=== PATIENT | female | born 1940 | race Caucasian/White ===

== ENCOUNTER 2017-02-03 09:49 | Inpatient (IN) | payer OTHER, MEDICARE ==
[2017-02-03] VITALS (8 sets, daily range): BP systolic 100–155; BP diastolic 58–70; PULSE 51–64; RESP 16–20; TEMP 96.7–97.7; O2SAT 95–98
[~2017-02-03] VITALS: Ht 165.1 cm; Wt 74.5 kg
[~2017-02-03 09:49] MED LIST: AMLO2.5T PO; ASPI325T PO; HYDR-2768 PO; LEVO.125 PO; MACR100C PO; POTA20IN3 PO; PRAV20 PO; PRIL20CA PO; TOPR200T PO
[2017-02-03] MEDS ORDERED: POTA-163 PO (10:23)
[2017-02-03] MEDS ORDERED: ATOR20TA15 PO (10:23)
[2017-02-03] MEDS ORDERED: HYDR50TA3 PO (10:23)
[2017-02-03] MEDS ORDERED: CIPR500T2 PO (10:23)
[2017-02-03] MEDS ORDERED: LEVO137T2 PO (10:23)
[2017-02-03] MEDS ORDERED: METO100T PO (10:23)
[2017-02-03] MEDS ORDERED: AMLO5TAB2 PO (10:23)
[2017-02-03] MEDS ORDERED: SODIUM CHLOR 0.9% 1000 ML INJ 1,000 ML IV ONE (10:45)
[2017-02-03 11:06] LABS: BACTERIA, URINE MOD /hpf; BLOOD, URINE TRACE (NEG); COMMENT (UR) CATH-CULTURE IND; CULTURE IF INDICATED CATH CULTURE IND; GLUCOSE,URINE NEG (NEG); KETONE, URINE NEG (NEG); NITRITE,URINE POS (NEG); SQUAMOUS EPITHELIAL CELL URINE <1 /hpf (0-5); URINE COLOR LIGHT-YELLOW (YELLW/STRAW)
[2017-02-03 11:21] LABS: AUTOMATED NEUTROPHIL # 12.2 TH/MM3 (1.8-7.7); BASOPHIL # 0.1 TH/MM3 (0-0.2); BASOPHIL % 0.4 % (0.0-2.0); EOSINOPHIL # 0.2 TH/MM3 (0-0.4); EOSINOPHIL % 1.1 % (0.0-4.0); HEMATOCRIT 44.6 % (35.0-46.0); HEMO FLAGS DIFF FINAL; LYMPH % 10.3 % (9.0-44.0); LYMPHOCYTE # 1.5 TH/MM3 (1.0-4.8); MEAN CELL VOLUME 81.1 FL (80.0-100.0); MEAN CORPUSCULAR HEMOGLOBIN 28.7 PG (27.0-34.0); MEAN CORPUSCULAR HGB CONC 35.4 % (32.0-36.0); MONO % 5.5 % (0.0-8.0); NEUT % 82.7 % (16.0-70.0); PLATELET COUNT 246 TH/MM3 (150-450); RED CELL DISTRIBUTION WIDTH 14.4 % (11.6-17.2); WHITE BLOOD COUNT 14.8 TH/MM3 (4.0-11.0)
[2017-02-03 11:25] LABS: ALKALINE PHOSPHATASE 114 U/L (45-117); ALT (GPT) 35 U/L (10-53); ANION GAP 12 MEQ/L (5-15); AST (GOT) 30 U/L (15-37); BICARBONATE 27.1 MEQ/L (21.0-32.0); BLOOD UREA NITROGEN 6 MG/DL (7-18); CHLORIDE 77 MEQ/L (98-107); GLOMERULAR FILTRATION RATE 80 ML/MIN (>89); TOTAL BILIRUBIN ADULT 1.2 MG/DL (0.2-1.0)
[2017-02-03 11:29] LABS: POTASSIUM 2.6 MEQ/L (3.5-5.1); SODIUM (NA) 116 MEQ/L (136-145)
[2017-02-03] MEDS ORDERED: SODIUM CHLORID 0.9% 500 ML INJ 500 ML IV ONE (11:45)
[2017-02-03] MEDS ORDERED: CIPROFLOXACIN 400 MG PREMIX 200 ML IV ONE (11:45)
[2017-02-03] MEDS ORDERED: cefTRIAXone INJ 1,000 MG in SODIUM CHLORIDE 0.9% INJ 100 ML IV ONE (11:45)
[2017-02-03 12:28] LABS: BICARBONATE 26.4 MEQ/L (21.0-32.0)
[2017-02-03 12:32] LABS: POTASSIUM 2.7 MEQ/L (3.5-5.1)
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
[2017-02-03] MEDS: POTASSIUM CHLOR 20 MEQ PREMIX 100 ML IV SCH ×2 (13:02→15:50)
[2017-02-03] MEDS: SODIUM CHLOR 0.9% 1000 ML INJ 1,000 ML IV SCH ×2 (13:02→19:28)
[2017-02-03] MEDS ORDERED: NALOXONE HCL 0.4 MG/ML AMP IV PUSH PRN (13:45)
[2017-02-03] MEDS ORDERED: SODIUM CHLORIDE 0.9% FLUSH 10 ML FLUSH IV FLUSH PRN (13:45)
[2017-02-03] MEDS ORDERED: BISACODYL 10 MG SUPP RECTAL PRN (13:45)
[2017-02-03] MEDS ORDERED: LACTULOSE SYRUP 20 GM/30 ML CUP PO PRN (13:45)
[2017-02-03] MEDS ORDERED: MAGNESIUM HYDROXIDE SUSP 30 ML CUP PO PRN (13:45)
[2017-02-03] MEDS ORDERED: SENNOSIDES 8.6 MG TAB PO PRN (13:45)
[2017-02-03] MEDS ORDERED: ONDANSETRON HCL 4 MG/2 ML VIAL IVP PRN (13:45)
[2017-02-03] MEDS ORDERED: ACETAMINOPHEN 325 MG TAB PO PRN (13:45)
[2017-02-03] MEDS: HEPARIN SODIUM - SQ 10,000 UNITS/ML VIAL SQ SCH (15:00)
[2017-02-03] MEDS: amLODIPine BESYLATE 5 MG TAB PO SCH (15:50)
[2017-02-03] MEDS: ATORVASTATIN 20 MG TAB PO SCH (20:37)
[2017-02-03] MEDS: SODIUM CHLORIDE 0.9% FLUSH 10 ML FLUSH IV FLUSH SCH (20:38)
[2017-02-03] MEDS ORDERED: POTASSIUM CHLORIDE 20 MEQ CONTROLLED RELEASE TAB PO ONE (23:00)
--- NOTE | 2017-02-03 23:24 | HHI.HP ---
HPI Service [facility] Primary Care Physician Oswaldo Talbot M.D. Admission Diagnosis hyponatremia Diagnoses: Travel History International Travel<30 Days: No Contact w/Intl Traveler <30 Da: No Traveled to Known Affected Are: No History of Present Illness hx from patient, ER physician communication, and review of medical records. Patient reported that she came to the hospital because she has been extremely weak. She reports she was very nauseous but did not vomit. She has had diarrhea off and on, maybe once a week for about 2 months. Denies any blood in her stool or in her urine. She reports she was also having UTIs for a while on antibiotics. On , she was at her doctor's office and was prescribed Cipro. She's been on it since Wednesday. Her diarrhea is more foul-smelling than her normal stool. No fever. But felt cold all the time. No cough. She is on hydrochlorothiazide at home. Denies any chest pain/dizziness/syncopal episodes. Patient reports similar episodes with severe weakness,. She was rushed to potential blood clots overnight Review of Systems Except as stated in HPI: all other systems reviewed are Neg Past Family Social History Past Medical History htn hypothyroidism hyperlipidemia Past Surgical History no surgeries Allergies: Coded Allergies: penicillin G (Unverified Allergy, Mild, 02/03/17) Family History sister- has every medical issues dad- lives till 87yo. fell in hospital and hip fx mother- schizophrenia Social History used to smoke, quit 40yrs ago denies etoh or drug abuse Physical Exam Vital Signs Vital Signs Date Time Temp Pulse Resp B/P (MAP) Pulse Ox O2 Delivery O2 Flow Rate FiO2 02/03/17 20:00 96.7 53 18 100/58 (72) 95 02/03/17 19:00 51 02/03/17 15:00 97.6 57 20 131/63 (85) 96 02/03/17 14:31 02/03/17 13:43 60 16 134/63 (86) 98 Room Air 02/03/17 12:33 64 16 155/70 (98) 98 Room Air 02/03/17 10:18 61 18 151/66 (94) 98 Room Air 02/03/17 09:59 97.7 61 16 146/66 (92) 97 Physical Exam GENERAL: This is a well-nourished, well-developed patient, in no apparent distress. SKIN: No rashes, ecchymoses or lesions. Cool and dry. HEAD: Atraumatic. Normocephalic. No temporal or scalp tenderness. EYES: No scleral icterus. No injection or drainage. ENT: Nose without bleeding, purulent drainage or septal hematoma.. Airway patent. NECK: Trachea midline. No JVD CARDIOVASCULAR: Regular rate and rhythm without murmurs, gallops, or rubs. RESPIRATORY: Clear to auscultation. Breath sounds equal bilaterally. No wheezes , rales, or rhonchi. GASTROINTESTINAL: Abdomen soft, non-tender, nondistended. No guarding. MUSCULOSKELETAL: Extremities without clubbing, cyanosis, or edema.. No calf tenderness. NEUROLOGICAL: Awake and alert. Motor and sensory grossly within normal limits. Normal speech. Laboratory Laboratory Tests Test 02/03/17 10:50 02/03/17 11:48 White Blood Count 14.8 Red Blood Count 5.50 Hemoglobin 15.8 Hematocrit 44.6 Mean Corpuscular Volume 81.1 Mean Corpuscular Hemoglobin 28.7 Mean Corpuscular Hemoglobin Concent 35.4 Red Cell Distribution Width 14.4 Platelet Count 246 Mean Platelet Volume 7.4 Neutrophils (%) (Auto) 82.7 Lymphocytes (%) (Auto) 10.3 Monocytes (%) (Auto) 5.5 Eosinophils (%) (Auto) 1.1 Basophils (%) (Auto) 0.4 Neutrophils # (Auto) 12.2 Lymphocytes # (Auto) 1.5 Monocytes # (Auto) 0.8 Eosinophils # (Auto) 0.2 Basophils # (Auto) 0.1 CBC Comment DIFF FINAL Differential Comment Urine Color LIGHT-YELLOW Urine Turbidity HAZY Urine pH 6.0 Urine Specific [place] 1.007 Urine Protein NEG Urine Glucose (UA) NEG Urine Ketones NEG Urine Occult Blood TRACE Urine Nitrite POS Urine Bilirubin NEG Urine Urobilinogen LESS THAN 2.0 Urine Leukocyte Esterase LARGE Urine RBC 2 Urine WBC 18 Urine Squamous Epithelial Cells <1 Urine Bacteria MOD Microscopic Urinalysis Comment CATH-CULTURE IND Blood Urea Nitrogen 6 6 Creatinine 0.71 0.53 Random Glucose 113 102 Total Protein 7.6 Albumin 3.8 Calcium Level 8.6 8.5 Alkaline Phosphatase 114 Aspartate Amino Transf (AST/SGOT) 30 Alanine Aminotransferase (ALT/SGPT) 35 Total Bilirubin 1.2 Sodium Level 116 118 Potassium Level 2.6 2.7 Chloride Level 77 81 Carbon Dioxide Level 27.1 26.4 Anion Gap 12 11 Estimat Glomerular Filtration Rate 80 112 Troponin I LESS THAN 0.02 Lactic Acid Level 2.4 Date/Time Source Procedure Growth Status 02/03/17 10:50 Urine Catheterized Urine Urine Culture Pending Received Result Diagram: 02/03/17 1050 02/03/17 1148 Caprini VTE Risk Assessment Caprini VTE Risk Assessment: Mod/High Risk (score >= 2) Caprini Risk Assessment Model Point Value = 1 Point Value = 2 Point Value = 3 Point Value = 5 Age 41-60 Minor surgery BMI > 25 kg/m2 Swollen legs Varicose veins or History of unexplained or recurrent spontaneous Oral contraceptives or hormone replacement Sepsis (< 1 month) Serious lung disease, including pneumonia (< 1 month) Abnormal pulmonary function Acute myocardial infarction Congestive heart failure (< 1 month) History of inflammatory bowel disease Medical patient at bed rest Age 61-74 Arthroscopic surgery Major open surgery (> 45 min) Laparoscopic surgery (> 45 min) Malignancy Confined to bed (> 72 hours) Immobilizing plaster cast Central venous access Age >= 75 History of VTE Family history of VTE Factor V Leiden Prothrombin [id number] Lupus anticoagulant Anticardiolipin antibodies Elevated serum homocysteine Heparin-induced thrombocytopenia Other congenital or acquired thrombophilia Stroke (< 1 month) Elective arthroplasty Hip, pelvis, or leg fracture Acute spinal cord injury (< 1 month) Prophylaxis Regimen Total Risk Factor Score Risk Level Prophylaxis Regimen 0-1 Low Early ambulation 2 Moderate Order ONE of the following: *Sequential Compression Device (SCD) *Heparin 5000 units SQ BID 3-4 Higher Order ONE of the following medications: *Heparin 5000 units SQ TID *Enoxaparin/Lovenox 40 mg SQ daily (WT < 150 kg, CrCl > 30 mL/min) *Enoxaparin/Lovenox 30 mg SQ daily (WT < 150 kg, CrCl > 10-29 mL/min) *Enoxaparin/Lovenox 30 mg SQ BID (WT < 150 kg, CrCl > 30 mL/min) AND/OR *Sequential Compression Device (SCD) 5 or more Highest Order ONE of the following medications: *Heparin 5000 units SQ TID (Preferred with Epidurals) *Enoxaparin/Lovenox 40 mg SQ daily (WT < 150 kg, CrCl > 30 mL/min) *Enoxaparin/Lovenox 30 mg SQ daily (WT < 150 kg, CrCl > 10-29 mL/min) *Enoxaparin/Lovenox 30 mg SQ BID (WT < 150 kg, CrCl > 30 mL/min) AND *Sequential Compression Device (SCD) Assessment and Plan Assessment and Plan Impression: uti hyponatremia hyokalemia sepsis by criteria diarhrea- r/o cdiff Plan: pt received rocephin in ER will follow culture results and adjust antibiotics IV hydration with NS follow Na levels Kcl replaced - 40mq po and another 40meq iv will follow levels in am pt has recent antibiotic use, dairrhea- will need to r/o cdiff till then, hold antibiotics- will follow urine cx before treating more with antibiotics check mag level and replace as needed resume home meds per med rec dvt prophylaxis with scd Discussed Condition With patient, ER MD, nursing staff Physician Certification 2 Midnight Certification Type: Admission for Inpatient Services Order for Inpatient Services The services are ordered in accordance with Medicare regulations or non- Medicare payer requirements, as applicable. In the case of services not specified as inpatient-only, they are appropriately provided as inpatient services in accordance with the 2-midnight benchmark. Estimated LOS (days): 2 days is the estimated time the patient will need to remain in the hospital, assuming treatment plan goals are met and no additional complications. Post-Hospital Plan: Not yet determined Sandra Lemus MD Feb 03, 2017 23:24
[2017-02-03] MEDS: POTASSIUM CHLOR 10 MEQ PREMIX 100 ML IV SCH (23:40)
[2017-02-04] VITALS (7 sets, daily range): BP systolic 126–143; BP diastolic 63–69; PULSE 53–68; RESP 16–20; TEMP 95.7–97.5; O2SAT 95–99
[2017-02-04 01:26] LABS: BICARBONATE 28.4 MEQ/L (21.0-32.0); MAGNESIUM 1.7 MG/DL (1.5-2.5)
[2017-02-04 01:27] LABS: POTASSIUM 2.9 MEQ/L (3.5-5.1)
[2017-02-04] MEDS: HEPARIN SODIUM - SQ 10,000 UNITS/ML VIAL SQ SCH ×2 (02:10→15:00)
[2017-02-04] MEDS: POTASSIUM CHLOR 10 MEQ PREMIX 100 ML IV SCH ×5 (02:11→08:25)
[2017-02-04] MEDS: LEVOTHYROXINE SODIUM 112 MCG TAB PO SCH (06:10)
[2017-02-04] MEDS: LEVOTHYROXINE SODIUM 25 MCG TAB PO SCH (06:10)
[2017-02-04] MEDS: SODIUM CHLOR 0.9% 1000 ML INJ 1,000 ML IV SCH (06:12)
[2017-02-04 06:27] LABS: AUTOMATED NEUTROPHIL # 6.5 TH/MM3 (1.8-7.7); BASOPHIL # 0.1 TH/MM3 (0-0.2); BASOPHIL % 0.8 % (0.0-2.0); EOSINOPHIL # 0.4 TH/MM3 (0-0.4); EOSINOPHIL % 4.5 % (0.0-4.0); HEMATOCRIT 39.4 % (35.0-46.0); HEMO FLAGS DIFF FINAL; LYMPH % 18.5 % (9.0-44.0); LYMPHOCYTE # 1.8 TH/MM3 (1.0-4.8); MEAN CELL VOLUME 82.9 FL (80.0-100.0); MEAN CORPUSCULAR HEMOGLOBIN 28.5 PG (27.0-34.0); MEAN CORPUSCULAR HGB CONC 34.4 % (32.0-36.0); MONO % 8.2 % (0.0-8.0); PLATELET COUNT 213 TH/MM3 (150-450); RED BLOOD COUNT 4.75 MIL/MM3 (4.00-5.30); RED CELL DISTRIBUTION WIDTH 14.6 % (11.6-17.2); WHITE BLOOD COUNT 9.6 TH/MM3 (4.0-11.0)
[2017-02-04 06:57] LABS: BICARBONATE 25.9 MEQ/L (21.0-32.0); MAGNESIUM 1.9 MG/DL (1.5-2.5); POTASSIUM 4.1 MEQ/L (3.5-5.1)
[2017-02-04] MEDS: POTASSIUM CHLORIDE 20 MEQ CONTROLLED RELEASE TAB PO SCH (08:25)
[2017-02-04] MEDS: SODIUM CHLORIDE 0.9% FLUSH 10 ML FLUSH IV FLUSH SCH ×2 (08:25→21:09)
[2017-02-04] MEDS: amLODIPine BESYLATE 5 MG TAB PO SCH ×2 (08:25→21:00)
[2017-02-04] MEDS: METOPROLOL TARTRATE 100 MG TAB PO SCH (08:27)
[2017-02-04] MEDS ORDERED: HYDROCHLOROTHIAZIDE 50 MG TAB PO SCH (09:00)
--- NOTE | 2017-02-04 17:25 | HHI.PR ---
Subjective Remarks pt says she feels good, no dysuria, no diarrhea today, no BM at all today. Pt is very hungry. D/w nursing today, patient wanting to go home and wanting to eat. Says that her UTIs only cause her to itch, denies any vaginal itching today. Objective Vital Signs Date Time Temp Pulse Resp B/P (MAP) Pulse Ox O2 Delivery O2 Flow Rate FiO2 02/04/17 11:50 97.5 55 20 141/69 (93) 97 02/04/17 07:50 96.1 68 20 138/65 (89) 97 02/04/17 04:00 96.8 57 17 126/69 (88) 98 02/04/17 00:00 96.6 53 17 143/65 (91) 97 02/03/17 21:00 52 02/03/17 20:00 96.7 53 18 100/58 (72) 95 02/03/17 19:00 51 I/O 02/03/17 02/03/17 02/03/17 02/04/17 02/04/17 02/04/17 07:00 15:00 23:00 07:00 15:00 23:00 Intake Total 2070 ml 2342 ml Balance 2070 ml 2342 ml Intake IV Total 2070 ml 2342 ml # Voids 2 Result Diagram: 02/04/17 0604 02/04/17 0604 Objective Remarks NAD ambulating well abd: soft, NT, ND A/P Assessment and Plan hyponatremia - stopping aggressive IVFs since the pt does not appear clinically septic anymore at all and there is a concern for rapid correction. Did correct > 12 units in 24 hours, unsure if prior level of 116 is accurate or not. Will trend labs, pt warned about signs and symptoms of CPM in case they emerge. severe hypokalemia - improved since it has been replaced aggressively so far, will trend tomorrow to ensure stabilization on home po regimen diarrhea - none today, will cancel c.diff marco- resolved uti - clinically improved if not resolved, yet UA while on Cipro is growing GNRs , will await for culture tomorrow sepsis - Resolved, despite ? source, possibly uti. Diarrhea unlikely since this is very scant now PO diet as tolerated. IVFs discontinued. Arnulfo Cavanaugh MD Feb 04, 2017 17:25
[2017-02-04] MEDS ORDERED: TEMAZEPAM 15 MG CAP PO PRN (20:00)
--- NOTE | 2017-02-04 20:41 | EKG ---
Date Performed: 02/03/2017 Time Performed: 10:56:47 PTAGE: 76 years EKG: SINUS BRADYCARDIA WITH FIRST DEGREE AV BLOCK RIGHT BUNDLE BRANCH BLOCK LEFT AXIS DEVIATION Compared to prior tracing no significant change ABNORMAL ECG PREVIOUS TRACING : 02/03/2017 10.55 DOCTOR: Lester Mata Interpretating Date/Time 02/08/2017 07:18:41
[2017-02-04] MEDS: CIPROFLOXACIN 500 MG TAB PO SCH (21:01)
[2017-02-04] MEDS: ATORVASTATIN 20 MG TAB PO SCH (21:02)
[2017-02-05] VITALS (24 sets, daily range): BP systolic 92–154; BP diastolic 51–86; PULSE 46–78; RESP 16–22; TEMP 96.4–98.5; O2SAT 93–100
[2017-02-05] MEDS: HEPARIN SODIUM - SQ 10,000 UNITS/ML VIAL SQ SCH ×2 (03:00→14:28)
[2017-02-05] MEDS: LEVOTHYROXINE SODIUM 112 MCG TAB PO SCH (06:23)
[2017-02-05] MEDS: LEVOTHYROXINE SODIUM 25 MCG TAB PO SCH (06:23)
[2017-02-05 07:36] LABS: BICARBONATE 24.7 MEQ/L (21.0-32.0); MAGNESIUM 1.9 MG/DL (1.5-2.5); POTASSIUM 3.5 MEQ/L (3.5-5.1)
[2017-02-05] MEDS: POTASSIUM CHLORIDE 20 MEQ CONTROLLED RELEASE TAB PO SCH (07:44)
[2017-02-05] MEDS: CIPROFLOXACIN 500 MG TAB PO SCH (07:45)
[2017-02-05] MEDS: SODIUM CHLORIDE 0.9% FLUSH 10 ML FLUSH IV FLUSH SCH ×2 (07:45→20:38)
[2017-02-05] MEDS: METOPROLOL TARTRATE 100 MG TAB PO SCH (07:45)
[2017-02-05] MEDS: amLODIPine BESYLATE 5 MG TAB PO SCH ×2 (07:49→20:38)
--- NOTE | 2017-02-05 13:47 | EKG ---
Date Performed: 02/05/2017 Time Performed: 09:07:40 PTAGE: 76 years EKG: SINUS BRADYCARDIA WITH SINUS ARRHYTHMIA WITH FIRST DEGREE AV BLOCK RIGHT BUNDLE BRANCH BLOC K LEFT ANTERIOR FASCICULAR BLOCK ABNORMAL ECG PREVIOUS TRACING : 02/03/2017 10.56 Compared to prior tracing no significant change DOCTOR: Uday Ortiz Interpretating Date/Time 02/05/2017 13:46:44
--- NOTE | 2017-02-05 14:41 | HHI.PR ---
Subjective Remarks was paged for amira; rn reported receiving notice from ticker that pt's pulse had decreased to the 20s for about 30 seconds . she was lightheaded but awake. BP was normal, sats stable on RA, no fever. short ~ 5 sec pauses were noted on telemetry strips. I myself examine the patient and she was awake alert. Her pulse had rebounded to the 50s without any acute intervention in her remaining vitals remained stable. EKG was repeated, actually showed a QTC in the 480s which was slightly less than EKG upon admission with QTCs and low 500s. Discussed case and consulted cardiology, will stop beta penelope. Objective Vital Signs Date Time Temp Pulse Resp B/P (MAP) Pulse Ox O2 Delivery O2 Flow Rate FiO2 02/05/17 14:00 50 02/05/17 12:00 53 02/05/17 12:00 98.3 53 21 132/62 (85) 100 02/05/17 11:03 100 Nasal Cannula 1.50 02/05/17 10:41 97.4 55 18 153/67 (95) 100 02/05/17 10:41 52 02/05/17 10:05 50 127/64 (85) 02/05/17 09:50 49 139/60 (86) 94 02/05/17 09:45 52 143/86 (105) 02/05/17 09:42 46 02/05/17 09:35 53 146/68 (94) 02/05/17 09:30 48 142/66 (91) 02/05/17 09:25 47 129/69 (89) 93 02/05/17 09:15 55 18 143/66 (91) 97 02/05/17 09:10 51 154/68 (96) 97 02/05/17 09:10 53 02/05/17 09:05 96.4 54 18 139/69 (92) 97 02/05/17 08:00 96.5 68 135/79 (97) 94 02/05/17 04:00 97.6 78 22 92/51 (65) 98 02/05/17 00:00 97.2 68 22 102/59 (73) 98 02/04/17 21:00 57 02/04/17 20:06 95.7 68 16 134/65 (88) 99 9/14/17 15:50 97.4 62 20 132/63 (86) 95 I/O 02/04/17 02/04/17 02/04/17 02/05/17 02/05/17 02/05/17 07:00 15:00 23:00 07:00 15:00 23:00 Intake Total 2342 ml 1061 ml 720 ml 1760 ml Balance 2342 ml 1061 ml 720 ml 1760 ml Intake Oral 1061 ml 720 ml 560 ml IV Total 2342 ml 1200 ml # Voids 2 4 4 2 # Bowel Movements 0 Result Diagram: 02/04/17 0604 02/05/17 0446 Objective Remarks NAD HR: rrr, no murmurs unlabored breathing, no cyanosis awake, alert, oriented x 3 A/P Assessment and Plan Transient symptomatic severe bradycardia - we'll stop beta penelope, cardiology now following, plan for EP study on Wednesday, will keep patient inpatient, transferring to intermediate care. stopping cipro out of concern for qt prolongation uti - will stop cipro, found to be ESBL positive +, consulting ID for IV abx setup. Pt will stay over weekend. hyponatremia - near resolution, monitor severe hypokalemia - resolved diarrhea - resolved PO diet as tolerated. Arnulfo Cavanaugh MD Feb 05, 2017 14:41
--- NOTE | 2017-02-05 17:58 | MB ---
cc: SAMMY MARQUES DO DATE OF CONSULTATION February 05, 2017 REASON FOR CONSULTATION Bradycardia, sinus pauses. HISTORY OF PRESENT ILLNESS Melinda Lizarraga is a pleasant 76-year-old female who originally came to the hospital because she was extremely weak. She reports that she was nauseous but was not vomiting. She recently was told that she had a UTI and was placed on antibiotics. She has no fevers or chills. While here she was placed on her normal medications including metoprolol tartrate 200 milligrams which she takes for blood pressure. After taking it this morning she was noted to have 2.5 to 3.5 second pauses on telemetry. During this she was noted to be lightheaded. I was called by Dr. Cavanaugh and reviewed the case with him extensively. PAST MEDICAL HISTORY 1. Hypertension. 2. Hypothyroidism. 3. Hyperlipidemia. PAST SURGICAL HISTORY Denies. ALLERGIES PENICILLIN. MEDICATIONS 1. Synthroid 137 micrograms daily. 2. Hydrochlorothiazide 50 milligrams daily. 3. Potassium 20 milliequivalents daily. 4. Norvasc 5 milligrams b.i.d. 5. Metoprolol tartrate 200 milligrams daily. 6. Lipitor 20 milligrams every night. 7. Placed on Cipro 500 milligrams b.i.d. for 7 days due to a UTI. FAMILY HISTORY Denies premature coronary artery disease or sudden cardiac within the family. SOCIAL HISTORY The patient previously smoked but quit 40 years ago. Denies alcohol or drug abuse. REVIEW OF SYSTEMS 14-systems were reviewed including osteopathic, pertinent positives and negatives above, otherwise negative. PHYSICAL EXAMINATION VITAL SIGNS: Temperature 97.4, heart rate 55, blood pressure 153/67, respirations 18, pulse ox 100% on 1 liter. GENERAL: In general, the patient appears well in no acute distress, alert awake and oriented x3. HEENT: Extraocular muscles intact. Mucous membranes moist. NECK: Supple. No JVD at 45 degrees. No carotid bruits heard bilaterally. Carotid upstroke is brisk in nature. HEART: Heart is bradycardic but regular. No noted murmurs or rubs. LUNGS: Clear to auscultation bilaterally. No wheezes, rales or rhonchi. ABDOMEN: Soft, nontender, nondistended. No organomegaly noted. EXTREMITIES: Show no clubbing, cyanosis or edema. Femoral and distal pulses intact bilaterally. NEUROLOGICALLY: No focal deficits. SKIN: Warm, dry and intact. OSTEOPATHIC: No kyphoscoliosis, lordosis or paraspinal tender points LABORATORY FINDINGS Hemoglobin 13.6, hematocrit 39.4, platelets 213. Potassium 3.5, BUN 7, creatinine 0.65. CARDIOLOGY STUDIES Electrocardiogram (February 05, 2017 at 09:07) sinus bradycardia with sinus arrhythmia, first degree AV block, right bundle branch block, left anterior fascicular block. No significant change from February 03, 2017. IMPRESSION 1. Sinus pauses of 2.5-3.5 seconds during which the patient is dizzy and symptomatic. 2. 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 3. History of hypertension. 4. History of hypothyroidism. 5. History of hyperlipidemia. 6. Possible UTI. 7. Hyponatremia and hypokalemia, possibly due to hydrochlorothiazide. RECOMMENDATIONS 1. Melinda Lizarraga was noted to have significant pauses of 2.5-3.5 seconds on telemetry. This may be due to her beta-penelope therapy and this will be held at this time. 2. We will transfer her to [facility] to be watched. At this time she is currently hemodynamically stable and I do not feel that she needs a temporary pacemaker. 3. Overall, she does have a trifascicular block on her EKG and most likely will need at least consideration of an EP study to determine if she needs a permanent pacemaker. This was discussed with Dr. Higgins and for now he will plan on possibly Wednesday. A consult will be placed for Dr. Higgins. 4. Further recommendations will be made based on the hospital course. 5. Will check a TSH, although, overall it appears that this is degeneration of her cardiac electric system. Thank you for allowing me to the Melinda Lizarraga. If there are any questions please do not hesitate to call. Sammy Marques DO VGP/EO /1:39 PM /5:44 PM
[2017-02-05] MEDS: ATORVASTATIN 20 MG TAB PO SCH (20:38)
[2017-02-06] VITALS (12 sets, daily range): BP systolic 115–138; BP diastolic 60–70; PULSE 52–78; RESP 18–22; TEMP 97.8–98.8; O2SAT 96–100
[2017-02-06] MEDS: HEPARIN SODIUM - SQ 10,000 UNITS/ML VIAL SQ SCH (03:00)
[2017-02-06] MEDS: LEVOTHYROXINE SODIUM 112 MCG TAB PO SCH (05:29)
[2017-02-06] MEDS: LEVOTHYROXINE SODIUM 25 MCG TAB PO SCH (05:29)
[2017-02-06] MEDS: POTASSIUM CHLORIDE 20 MEQ CONTROLLED RELEASE TAB PO SCH (08:06)
[2017-02-06] MEDS: SODIUM CHLORIDE 0.9% FLUSH 10 ML FLUSH IV FLUSH SCH ×2 (08:06→21:00)
[2017-02-06] MEDS: amLODIPine BESYLATE 5 MG TAB PO SCH ×2 (08:06→20:13)
--- NOTE | 2017-02-06 10:17 | PD.CARD.PN ---
Subjective Subjective Remarks No events overnight Feels well today, no complaints Telemetry showing last pause at 02/05/17 ~6pm, since mostly sinus/sinus aman Objective Medications Current Medications Medications (Trade) Dose Ordered Sig/Olivia Route Start Time Stop Time Status Last Admin (Norvasc) 5 mg BID PO 02/03/17 15:00 02/06/17 08:06 (Lipitor) 20 mg HS PO 02/03/17 21:00 02/05/17 20:38 (KCl) 20 meq DAILY PO 02/04/17 09:00 02/06/17 08:06 (Synthroid) 112 mcg DAILY@0600 PO 02/04/17 06:00 02/06/17 05:29 (NS Flush) 2 ml UNSCH PRN IV FLUSH 02/03/17 13:45 (NS Flush) 2 ml BID IV FLUSH 02/03/17 21:00 02/06/17 08:06 (Tylenol) 650 mg Q4H PRN PO 02/03/17 13:45 (Zofran Inj) 4 mg Q6H PRN IVP 02/03/17 13:45 (Heparin Inj) 5,000 units Q12H SQ 02/03/17 15:00 (Narcan Inj) 0.4 mg UNSCH PRN IV PUSH 02/03/17 13:45 (Milk Of Magnesia Liq) 30 ml Q12H PRN PO 02/03/17 13:45 (Senokot) 17.2 mg Q12H PRN PO 02/03/17 13:45 (Dulcolax Supp) 10 mg DAILY PRN RECTAL 02/03/17 13:45 (Lactulose Liq) 30 ml DAILY PRN PO 02/03/17 13:45 (Synthroid) 25 mcg DAILY@0600 PO 02/04/17 06:00 02/06/17 05:29 (Restoril) 15 mg HS PRN PO 02/04/17 20:00 02/04/17 21:02 Vital Signs / I&O Vital Signs Date Time Temp Pulse Resp B/P (MAP) Pulse Ox O2 Delivery O2 Flow Rate FiO2 02/06/17 06:00 63 02/06/17 04:00 98.8 59 18 137/63 (87) 97 02/06/17 04:00 59 02/06/17 02:00 52 02/06/17 00:00 98.5 53 20 115/62 (79) 96 02/06/17 00:00 53 02/05/17 22:00 53 02/05/17 20:00 56 02/05/17 20:00 98.5 56 22 138/63 (88) 98 02/05/17 18:00 52 02/05/17 16:00 98.5 53 22 112/55 (74) 97 02/05/17 16:00 53 02/05/17 14:00 50 02/05/17 12:00 53 02/05/17 12:00 98.3 53 21 132/62 (85) 100 02/05/17 11:03 100 Nasal Cannula 1.50 02/05/17 10:41 97.4 55 18 153/67 (95) 100 02/05/17 10:41 52 I/O 02/05/17 02/05/17 02/05/17 02/06/17 02/06/17 02/06/17 07:00 15:00 23:00 07:00 15:00 23:00 Intake Total 720 ml 1760 ml 500 ml 240 ml Balance 720 ml 1760 ml 500 ml 240 ml Intake Oral 720 ml 560 ml 500 ml 240 ml IV Total 1200 ml # Voids 4 2 1 1 Physical Exam GENERAL: NAD, AAOx3 SKIN: Warm and dry. HEAD: Atraumatic. Normocephalic. EYES: Pupils equal and round. No scleral icterus. No injection or drainage. ENT: No nasal bleeding or discharge. Mucous membranes pink and moist. NECK: Trachea midline. No JVD. CARDIOVASCULAR: Regular rate and rhythm. RESPIRATORY: No accessory muscle use. Clear to auscultation. Breath sounds equal bilaterally. GASTROINTESTINAL: Abdomen soft, non-tender, nondistended. Hepatic and splenic margins not palpable. MUSCULOSKELETAL: Extremities without clubbing, cyanosis, or edema. No obvious deformities. NEUROLOGICAL: Awake and alert. No obvious cranial nerve deficits. Motor grossly within normal limits. Five out of 5 muscle strength in the arms and legs. Normal speech. PSYCHIATRIC: Appropriate mood and affect; insight and judgment normal. 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 - Trifascicular block (3) Sinus pause ICD Codes: I45.5 - Other specified heart block (4) Hyponatremia ICD Codes: E87.1 - Hypo-osmolality and hyponatremia Status: Acute (5) Urinary tract infection ICD Codes: N39.0 - Urinary tract infection, site not specified Status: Acute Assessment and Plan 1) Sinus pauses Most likely due to large doses of BB Would watch in the ICU for 24 hours, if no pauses then can be transferred to [facility]IC Con't to hold BB 2) Hypothyroidism TSH high, will need further testing of T4/T3 to further determine if hypothyroid on current Synthroid dose 3) Trifascicular block Even if hypothyroid, still needs EP study to determine if PPM is needed Discussed with Dr. Higgins, will plan on Wednesday possibly 4) HTN Controlled on Norvasc 5) Hyponatremia/hypokalemia Stable/resolved Most likely due to HCTZ Problem Qualifiers (1) Urinary tract infection: Qualified Codes: N30.00 - Acute cystitis without hematuria Sammy Montoya DO Feb 06, 2017 10:17
--- NOTE | 2017-02-06 12:46 | ECHRPT ---
Indication: SINUS PAUSES CONCLUSIONS Normal left ventricular size. Mild concentric left ventricular hypertrophy. Doppler parameters are consistent with impaired left ventricular relaxtion (grade 1 diastolic dysfun ction). The left atrial size is [id number] dilated. The right atrial size is mildly dilated. The interatrial septum not well visualized. Mild thickening of the mitral valve leaflets. Trace mitral valve regurgitation. Moderate mitral annular calcification. The aortic valve is not well visualized. Aortic valve sclerosis is present. Mild aortic valve regurgitation. No aortic valve stenosis. There is mild tricuspid valve regurgitation. There is estimated mild pulmonary hypertension present (range 40-50 mmHg). The pulmonary valve is not well visualized. The inferior vena cava was not well visualized. A prominent epicardial fat pad is present. BP: 137 / 63 HR: 56 Rhythm: Sinus MEASUREMENTS (Male / Female) Normal Values Technical Quality:Fair 2D ECHO LV Diastolic Diameter PLAX 4.8 cm 4.2 - 5.9 / 3.9 - 5.3 cm LV Systolic Diameter PLAX 3.2 cm IVS Diastolic Thickness 1.1 cm 0.6 - 1.0 / 0.6 - 0.9 cm LVPW Diastolic Thickness 1.1 cm 0.6 - 1.0 / 0.6 - 0.9 cm LV Relative Wall Thickness 0.4 LVOT Diameter 1.8 cm Aortic Root Diameter 2.1 cm LA Systolic Diameter LX 4.3 cm 3.0 - 4.0 / 2.7 - 3.8 cm M-MODE AV Cusp Separation MM 1.7 cm DOPPLER AV Peak Velocity 149.0 cm/s AV Peak Gradient 8.9 mmHg AV Mean Gradient 4.0 mmHg AV Velocity Time Integral 28.3 cm LVOT Peak Velocity 119.0 cm/s LVOT Peak Gradient 5.7 mmHg LVOT Velocity Time Integral 25.6 cm LVOT Cardiac Index 1919.0 cm/minm AV Area Cont Eq vti 2.3 cm AV Area Cont Eq pk 2.0 cm Mitral E Point Velocity 79.0 cm/s Mitral A Point Velocity 105.0 cm/s Mitral E to A Ratio 0.8 LV E' Lateral Velocity 7.8 cm/s Mitral E to LV E' Lateral Ratio 10.1 LV E' Septal Velocity 5.6 cm/s Mitral E to LV E' Septal Ratio 14.2 TR Peak Velocity 285.0 cm/s TR Peak Gradient 32.5 mmHg PV Peak Velocity 98.7 cm/s PV Peak Gradient 3.9 mmHg FINDINGS LEFT VENTRICLE Normal left ventricular size. Mild concentric left ventricular hypertrophy. The left ventricular systolic function is normal with an estimated ejection fraction in the range of 60-65%. Doppler parameters are consistent with impaired left ventricular relaxtion (grade 1 diastolic dysfun ction). RIGHT VENTRICLE Normal right ventricular size and systolic function. LEFT ATRIUM The left atrial size is [id number] dilated. RIGHT ATRIUM The right atrial size is mildly dilated. ATRIAL SEPTUM The interatrial septum not well visualized. AORTA The aortic root and proximal ascending aorta are normal in size on limited imaging. MITRAL VALVE Mild thickening of the mitral valve leaflets. Trace mitral valve regurgitation. Moderate mitral annular calcification. AORTIC VALVE The aortic valve is not well visualized. Aortic valve sclerosis is present. Mild aortic valve regurgitation. No aortic valve stenosis. TRICUSPID VALVE Structurally normal tricuspid valve. There is mild tricuspid valve regurgitation. There is estimated mild pulmonary hypertension present (range 40-50 mmHg). PULMONARY VALVE The pulmonary valve is not well visualized. VESSELS The inferior vena cava was not well visualized. PERICARDIUM A prominent epicardial fat pad is present. No pericardial effusion. Shawn Christine MD (Electronically Signed) Final Date:06 February 2017 12:45
--- NOTE | 2017-02-06 13:58 | PD.ID.CON ---
History of Present Illness Service ID Consult Requested By Dr Cavanaugh Reason for Consult L + UTI Primary Care Physician Oswaldo Talbot M.D. Diagnoses: History of Present Illness 76 yo female with large abdominal wall surgery developped UTI about 10 days ago and was prescribed cipro which she toook for over 1 week, but it did not helped her She presetned few days ago with dizziness, weakness, neart syncope and was found to be bradycardiac and having poorly controlled hypothyroidism (she states compliance) She also cont to expercience disuria and her urinalysis was abnormal with pyuria . Urine culture was positive for ESBL+ E.coli R cipro Pt is afebrile she presented with leukocytosis , which improved Review of Systems Except as stated in HPI: all other systems reviewed are Neg Past Family Social History Allergies: Coded Allergies: penicillin G (Unverified Allergy, Mild, 02/03/17) Past Medical History htn hypothyroidism hyperlipidemia Past Surgical History no surgeries Active Ordered Medications Medications where reviewed in EMR Antibiotics Include: none Family History reviewed; non contibutory Social History used to smoke, quit 40yrs ago denies etoh or drug abuse Physical Exam Vital Signs Vital Signs Date Time Temp Pulse Resp B/P (MAP) Pulse Ox O2 Delivery O2 Flow Rate FiO2 02/06/17 12:00 76 02/06/17 12:00 98.3 76 18 134/62 (86) 99 02/06/17 10:00 78 02/06/17 08:00 64 02/06/17 08:00 97.8 66 22 132/70 (90) 100 02/06/17 08:00 97.8 02/06/17 06:00 63 02/06/17 04:00 98.8 59 18 137/63 (87) 97 02/06/17 04:00 59 02/06/17 02:00 52 02/06/17 00:00 98.5 53 20 115/62 (79) 96 02/06/17 00:00 53 02/05/17 22:00 53 02/05/17 20:00 56 02/05/17 20:00 98.5 56 22 138/63 (88) 98 02/05/17 18:00 52 02/05/17 16:00 98.5 53 22 112/55 (74) 97 02/05/17 16:00 53 02/05/17 14:00 50 Physical Exam CONSTITUTIONAL/GENERAL: This is an adequately nourished patient, in no apparent distress. TUBES/LINES/DRAINS: SKIN: No jaundice, rashes, or lesions. Skin temperature appropriate. Not diaphoretic. HEAD: Atraumatic. Normocephalic. EYES: Pupils equal and round and reactive. Extraocular motions intact. No scleral icterus. No injection or drainage. Fundi not examined. ENT: Hearing grossly normal. Nose without bleeding or purulent drainage. Throat without visible erythema, exudates, masses, or lesions. Very poor dentition NECK: Trachea midline. Supple, nontender. No palpable thyroid enlargement or nodularity. CARDIOVASCULAR: Regular rate and rhythm without murmurs, gallops, or rubs. No JVD. Peripheral pulses symmetric. RESPIRATORY/CHEST: Symmetric, unlabored respirations. Clear to auscultation. Breath sounds equal bilaterally. No wheezes, rales, or rhonchi. GASTROINTESTINAL: Abdomen soft, non-tender, nondistended. No hepato-splenomegaly , Very large soft not tender mass in RLQ cw large hernia . No guarding. Bowel sounds present. GENITOURINARY: Without palpable bladder distension. No CVA tenderness MUSCULOSKELETAL: Extremities without clubbing, cyanosis, or edema. No joint tenderness or effusion noted. No calf tenderness. No mottling or clubbing. LYMPHATICS: No palpable cervical or supraclavicular adenopathy. NEUROLOGICAL: Awake and alert. Motor and sensory grossly within normal limits. Follows commands. Clear speech Moves all extremities. PSYCHIATRIC: No obvious anxiety/depression. no apparent hallucinations or other psychotic thought process. Laboratory Laboratory Tests Test 02/06/17 13:24 Date/Time Source Procedure Growth Status 02/03/17 10:50 Urine Catheterized Urine Urine Culture - Final Escherichia Coli Esbl Positive Complete Result Diagram: 02/04/17 0604 02/05/17 0446 Assessment and Plan Assessment and Plan ESBL + E.coli UTI failed cipro (resistance) Large abd wall hernia Bradycardia start Ertapenem anticipate transition to Bactrim to complete 14 days course Discussed Condition With Sharon Maher MD Feb 06, 2017 13:58
[2017-02-06] MEDS ORDERED: ERTAPENEM INJ 1,000 MG in SODIUM CHLORIDE 0.9% INJ 100 ML IV SCH (14:00)
[2017-02-06] MEDS ORDERED: ASP: Documented ESBL, MDR A baumannii or P. aeruginosa XX PRN (14:00)
[2017-02-06] MEDS ORDERED: MISCELLANEOUS PHARMACY INFORMATION XX PRN ×2 (14:00→14:15)
[2017-02-06] MEDS ORDERED: ASP: Documented ESBL, MDR A baumannii or P. aeruginosa PRN (14:15)
[2017-02-06 14:20] LABS: ANION GAP 9 MEQ/L (5-15); AST (GOT) 25 U/L (15-37); BICARBONATE 27.1 MEQ/L (21.0-32.0); BLOOD UREA NITROGEN 8 MG/DL (7-18); CHLORIDE 98 MEQ/L (98-107); GLOMERULAR FILTRATION RATE 99 ML/MIN (>89); POTASSIUM 3.8 MEQ/L (3.5-5.1); SODIUM (NA) 134 MEQ/L (136-145)
[2017-02-06 14:21] LABS: ALT (GPT) 33 U/L (10-53)
[2017-02-06 14:23] LABS: ALKALINE PHOSPHATASE 88 U/L (45-117); TOTAL BILIRUBIN ADULT 0.5 MG/DL (0.2-1.0)
--- NOTE | 2017-02-06 17:08 | HHI.PR ---
Subjective Remarks Follow-up on symptomatically bradycardia and ESBL bacteriuria. Nursing denies any acute events happening overnight except for another short pause noted on the telemetry. Patient herself denies any symptoms, denies any urinary symptoms or chest pain symptoms. Objective Vital Signs Date Time Temp Pulse Resp B/P (MAP) Pulse Ox O2 Delivery O2 Flow Rate FiO2 02/06/17 14:00 71 02/06/17 12:00 76 02/06/17 12:00 98.3 76 18 134/62 (86) 99 02/06/17 10:00 78 02/06/17 08:00 64 02/06/17 08:00 97.8 66 22 132/70 (90) 100 02/06/17 08:00 97.8 02/06/17 06:00 63 02/06/17 04:00 98.8 59 18 137/63 (87) 97 02/06/17 04:00 59 02/06/17 02:00 52 02/06/17 00:00 98.5 53 20 115/62 (79) 96 02/06/17 00:00 53 02/05/17 22:00 53 02/05/17 20:00 56 02/05/17 20:00 98.5 56 22 138/63 (88) 98 02/05/17 18:00 52 I/O 02/05/17 02/05/17 02/05/17 02/06/17 02/06/17 02/06/17 07:00 15:00 23:00 07:00 15:00 23:00 Intake Total 720 ml 1760 ml 500 ml 240 ml Balance 720 ml 1760 ml 500 ml 240 ml Intake Oral 720 ml 560 ml 500 ml 240 ml IV Total 1200 ml # Voids 4 2 1 1 Result Diagram: 02/04/17 0604 02/06/17 1324 Objective Remarks NAD HR: rrr, no murmurs unlabored breathing, no cyanosis awake, alert, oriented x 3 A/P Assessment and Plan Transient symptomatic severe bradycardia -withholding beta blockers, Cipro was discontinued yesterday since patient was ESBL positive and additionally there was a concern for QT prolongation . EP studies to be scheduled for Wednesday. TSH is significantly elevated free T4 is low normal while on low-dose Synthroid (could be due to transient illness) - meanwhile we'll increase Synthroid ESBL positive bacteria - started on Invanz per ID, appreciate consult hyponatremia -stable PO diet as tolerated. lovenox for dvt prophylaxis Arnulfo Cavanaugh MD Feb 06, 2017 17:08
[2017-02-06] MEDS: ERTAPENEM INJ 1,000 MG in SODIUM CHLORIDE 0.9% INJ 100 ML IV SCH (17:13)
[2017-02-06] MEDS: ENOXAPARIN SODIUM 30 MG/0.3 ML SYRINGE SQ SCH ×2 (18:00→18:07)
[2017-02-06] MEDS: LEVOTHYROXINE SODIUM 100 MCG TAB PO SCH (18:07)
[2017-02-06] MEDS: ATORVASTATIN 20 MG TAB PO SCH (20:13)
[2017-02-07] VITALS (17 sets, daily range): BP systolic 124–153; BP diastolic 58–74; PULSE 55–87; RESP 14–26; TEMP 97.5–99.1; O2SAT 95–98
[2017-02-07 06:00] LABS: AUTOMATED NEUTROPHIL # 6.2 TH/MM3 (1.8-7.7); BASOPHIL # 0.1 TH/MM3 (0-0.2); BASOPHIL % 0.8 % (0.0-2.0); EOSINOPHIL # 0.3 TH/MM3 (0-0.4); EOSINOPHIL % 3.3 % (0.0-4.0); HEMO FLAGS DIFF FINAL; LYMPH % 19.8 % (9.0-44.0); LYMPHOCYTE # 1.8 TH/MM3 (1.0-4.8); MEAN CORPUSCULAR HGB CONC 34.2 % (32.0-36.0); MONO % 7.3 % (0.0-8.0); NEUT % 68.8 % (16.0-70.0); PLATELET COUNT 221 TH/MM3 (150-450); RED BLOOD COUNT 4.94 MIL/MM3 (4.00-5.30)
[2017-02-07] MEDS: LEVOTHYROXINE SODIUM 100 MCG TAB PO SCH (06:02)
[2017-02-07] MEDS: SODIUM CHLORIDE 0.9% FLUSH 10 ML FLUSH IV FLUSH SCH ×2 (09:00→21:02)
[2017-02-07] MEDS: POTASSIUM CHLORIDE 20 MEQ CONTROLLED RELEASE TAB PO SCH (09:02)
[2017-02-07] MEDS: amLODIPine BESYLATE 5 MG TAB PO SCH ×2 (09:02→21:01)
--- NOTE | 2017-02-07 10:53 | PD.CARD.PN ---
Subjective Subjective Remarks No events overnight No further pauses noted on telemetry Objective Medications Current Medications Medications (Trade) Dose Ordered Sig/Olivia Route Start Time Stop Time Status Last Admin (Norvasc) 5 mg BID PO 02/03/17 15:00 02/07/17 09:02 (Lipitor) 20 mg HS PO 02/03/17 21:00 02/06/17 20:13 (KCl) 20 meq DAILY PO 02/04/17 09:00 02/07/17 09:02 (NS Flush) 2 ml UNSCH PRN IV FLUSH 02/03/17 13:45 (NS Flush) 2 ml BID IV FLUSH 02/03/17 21:00 02/07/17 09:00 (Tylenol) 650 mg Q4H PRN PO 02/03/17 13:45 (Zofran Inj) 4 mg Q6H PRN IVP 02/03/17 13:45 (Narcan Inj) 0.4 mg UNSCH PRN IV PUSH 02/03/17 13:45 (Milk Of Magnesia Liq) 30 ml Q12H PRN PO 02/03/17 13:45 (Senokot) 17.2 mg Q12H PRN PO 02/03/17 13:45 (Dulcolax Supp) 10 mg DAILY PRN RECTAL 02/03/17 13:45 (Lactulose Liq) 30 ml DAILY PRN PO 02/03/17 13:45 (Restoril) 15 mg HS PRN PO 02/04/17 20:00 02/04/17 21:02 (ASP Crit: Doc ESBL, MDR A baumannii or P aer) 1 UNSCH X1 PRN .XX 02/06/17 14:15 02/07/17 14:14 ([facility] [place] [facility] Information) 1 UNSCH X1 PRN XX 02/06/17 14:15 02/07/17 14:14 Ertapenem 1000 mg/ Sodium Chloride 100 ml @ 200 mls/hr Q24H IV 02/06/17 16:00 02/06/17 17:13 (Synthroid) 100 mcg DAILY@0600 PO 02/06/17 17:15 02/07/17 06:02 (Lovenox Inj) 30 mg Q24H SQ 02/06/17 18:00 Vital Signs / I&O Vital Signs Date Time Temp Pulse Resp B/P (MAP) Pulse Ox O2 Delivery O2 Flow Rate FiO2 02/07/17 06:00 74 02/07/17 04:00 72 02/07/17 04:00 97.5 55 17 126/60 (82) 95 02/07/17 02:00 55 02/07/17 00:00 98.0 62 22 129/58 (81) 95 02/07/17 00:00 62 02/06/17 22:00 57 02/06/17 20:00 65 02/06/17 20:00 98.7 65 22 138/64 (88) 97 02/06/17 18:00 70 02/06/17 16:00 98.2 67 18 128/60 (82) 97 02/06/17 16:00 67 02/06/17 14:00 71 02/06/17 12:00 76 02/06/17 12:00 98.3 76 18 134/62 (86) 99 I/O 02/06/17 02/06/17 02/06/17 02/07/17 02/07/17 02/07/17 07:00 15:00 23:00 07:00 15:00 23:00 Intake Total 240 ml 1440 ml 750 ml Balance 240 ml 1440 ml 750 ml Intake Oral 240 ml 1440 ml 750 ml # Voids 1 4 3 # Bowel Movements 0 Physical Exam GENERAL: NAD, AAOx3 SKIN: Warm and dry. HEAD: Atraumatic. Normocephalic. EYES: Pupils equal and round. No scleral icterus. No injection or drainage. ENT: No nasal bleeding or discharge. Mucous membranes pink and moist. NECK: Trachea midline. No JVD. CARDIOVASCULAR: Regular rate and rhythm. RESPIRATORY: No accessory muscle use. Clear to auscultation. Breath sounds equal bilaterally. GASTROINTESTINAL: Abdomen soft, non-tender, nondistended. Hepatic and splenic margins not palpable. MUSCULOSKELETAL: Extremities without clubbing, cyanosis, or edema. No obvious deformities. NEUROLOGICAL: Awake and alert. No obvious cranial nerve deficits. Motor grossly within normal limits. Five out of 5 muscle strength in the arms and legs. Normal speech. PSYCHIATRIC: Appropriate mood and affect; insight and judgment normal. Laboratory Laboratory Tests Test 02/06/17 13:24 02/07/17 05:38 Blood Urea Nitrogen 8 MG/DL Creatinine 0.59 MG/DL Random Glucose 133 MG/DL Total Protein 6.4 GM/DL Albumin 3.4 GM/DL Calcium Level 7.9 MG/DL Alkaline Phosphatase 88 U/L Aspartate Amino Transf (AST/SGOT) 25 U/L Alanine Aminotransferase (ALT/SGPT) 33 U/L Total Bilirubin 0.5 MG/DL Sodium Level 134 MEQ/L Potassium Level 3.8 MEQ/L Chloride Level 98 MEQ/L Carbon Dioxide Level 27.1 MEQ/L Anion Gap 9 MEQ/L Estimat Glomerular Filtration Rate 99 ML/MIN Free Thyroxine 1.10 NG/DL White Blood Count 9.0 TH/MM3 Red Blood Count 4.94 MIL/MM3 Hemoglobin 14.3 GM/DL Hematocrit 42.0 % Mean Corpuscular Volume 85.0 FL Mean Corpuscular Hemoglobin 29.0 PG Mean Corpuscular Hemoglobin Concent 34.2 % Red Cell Distribution Width 15.0 % Platelet Count 221 TH/MM3 Mean Platelet Volume 7.6 FL Neutrophils (%) (Auto) 68.8 % Lymphocytes (%) (Auto) 19.8 % Monocytes (%) (Auto) 7.3 % Eosinophils (%) (Auto) 3.3 % Basophils (%) (Auto) 0.8 % Neutrophils # (Auto) 6.2 TH/MM3 Lymphocytes # (Auto) 1.8 TH/MM3 Monocytes # (Auto) 0.7 TH/MM3 Eosinophils # (Auto) 0.3 TH/MM3 Basophils # (Auto) 0.1 TH/MM3 CBC Comment DIFF FINAL Differential Comment Thyroid Stimulating Hormone 3rd Gen 6.380 uIU/ML Assessment and Plan Problem List: (1) Hypothyroidism ICD Codes: E03.9 - Hypothyroidism, unspecified (2) Trifascicular block ICD Codes: I45.3 - Trifascicular block (3) Sinus pause ICD Codes: I45.5 - Other specified heart block (4) Hyponatremia ICD Codes: E87.1 - Hypo-osmolality and hyponatremia Status: Acute (5) Urinary tract infection ICD Codes: N39.0 - Urinary tract infection, site not specified Status: Acute Assessment and Plan 1) Sinus pauses Most likely due to large doses of BB Can be transferred to [facility]IC Con't to hold BB 2) Hypothyroidism TSH high, but free T4 within normal range 3) Trifascicular block Even if hypothyroid, still needs EP study to determine if PPM is needed Discussed with Dr. Higgins, will plan on Wednesday possibly Discussed with Dr. Kemp from ID about UTI, she is ok with EP study and possible PPM placement if needed 4) HTN Controlled on Norvasc 5) Hyponatremia/hypokalemia Stable/resolved Most likely due to HCTZ 6) UTI Problem Qualifiers (1) Urinary tract infection: Qualified Codes: N30.00 - Acute cystitis without hematuria Sammy Montoya DO Feb 07, 2017 10:53
[2017-02-07] MEDS: ERTAPENEM INJ 1,000 MG in SODIUM CHLORIDE 0.9% INJ 100 ML IV SCH (15:32)
--- NOTE | 2017-02-07 15:43 | HHI.PR ---
Subjective Remarks Follow-up on symptomatically bradycardia and ESBL bacteriuria. Nursing reports that the patient stated that she felt "jittery" this morning after receiving her increased dose of Synthroid. Patient later felt better in the day. Patient now herself denies any acute complaints or jitteriness. Case discussed with Dr. Mercer, aiming to get EP study done tomorrow Objective Vital Signs Date Time Temp Pulse Resp B/P (MAP) Pulse Ox O2 Delivery O2 Flow Rate FiO2 02/07/17 14:00 71 02/07/17 12:00 74 02/07/17 12:00 97.8 74 14 153/68 (96) 97 02/07/17 10:00 80 02/07/17 08:00 98.3 87 26 135/59 (84) 97 02/07/17 08:00 87 02/07/17 06:00 74 02/07/17 04:00 72 02/07/17 04:00 97.5 55 17 126/60 (82) 95 02/07/17 02:00 55 02/07/17 00:00 98.0 62 22 129/58 (81) 95 02/07/17 00:00 62 02/06/17 22:00 57 02/06/17 20:00 65 02/06/17 20:00 98.7 65 22 138/64 (88) 97 02/06/17 18:00 70 02/06/17 16:00 98.2 67 18 128/60 (82) 97 02/06/17 16:00 67 I/O 02/06/17 02/06/17 02/06/17 02/07/17 02/07/17 02/07/17 07:00 15:00 23:00 07:00 15:00 23:00 Intake Total 240 ml 1440 ml 750 ml 100 ml Balance 240 ml 1440 ml 750 ml 100 ml Intake Oral 240 ml 1440 ml 750 ml IV Total 100 ml # Voids 1 4 3 # Bowel Movements 0 Result Diagram: 02/07/17 0538 02/06/17 1324 Objective Remarks NAD HR: rrr, no murmurs unlabored breathing, no cyanosis awake, alert, oriented x 3 Soft abdomen, no suprapubic tenderness palpation A/P Assessment and Plan Transient symptomatic severe bradycardia -withholding beta blockers, EP stud to be scheduled for Wednesday. TSH is significantly elevated free T4 is low normal while on low-dose Synthroid (could be due to transient illness) -we'll lower her Synthroid from higher dose to 75 g (home dose is 25 g) due to jitteriness ESBL positive bacteria -Invanz per ID, anticipate transition to Bactrim hyponatremia -stable PO diet as tolerated. lovenox for dvt prophylaxis Arnulfo Cavanaugh MD Feb 07, 2017 15:43
[2017-02-07] MEDS: ENOXAPARIN SODIUM 30 MG/0.3 ML SYRINGE SQ SCH (16:52)
[2017-02-07] MEDS: ATORVASTATIN 20 MG TAB PO SCH (21:01)
[2017-02-08] VITALS (24 sets, daily range): BP systolic 117–168; BP diastolic 70–77; PULSE 56–87; RESP 16–20; TEMP 98–99; O2SAT 96–98
[2017-02-08] MEDS: LEVOTHYROXINE SODIUM 75 MCG TAB PO SCH (06:00)
[2017-02-08] MEDS: POTASSIUM CHLORIDE 20 MEQ CONTROLLED RELEASE TAB PO SCH (08:58)
[2017-02-08] MEDS: amLODIPine BESYLATE 5 MG TAB PO SCH ×2 (08:58→20:58)
[2017-02-08] MEDS: SODIUM CHLORIDE 0.9% FLUSH 10 ML FLUSH IV FLUSH SCH ×2 (08:59→21:00)
--- NOTE | 2017-02-08 12:32 | HHI.PR ---
Subjective Remarks Resting in bed, no chest pain short of breath, he is scheduled for EP study at 6 PM today Objective Vitals Vital Signs Date Time Temp Pulse Resp B/P (MAP) Pulse Ox O2 Delivery O2 Flow Rate FiO2 02/08/17 12:00 76 02/08/17 11:00 98.5 77 20 144/72 (96) 97 02/08/17 11:00 77 02/08/17 10:00 63 02/08/17 09:00 80 02/08/17 08:00 76 02/08/17 07:00 72 02/08/17 07:00 98.0 84 20 168/74 (105) 98 02/08/17 06:00 58 02/08/17 05:15 76 18 132/74 (93) 98 02/08/17 05:00 62 02/08/17 04:00 76 02/08/17 03:00 78 02/08/17 02:00 70 02/08/17 01:00 56 02/08/17 00:00 58 02/07/17 23:51 99.1 66 16 124/62 (82) 97 02/07/17 23:00 59 02/07/17 22:00 60 02/07/17 21:00 64 02/07/17 20:00 70 02/07/17 19:00 61 02/07/17 19:00 98.3 80 16 136/74 (94) 97 Automatic Cuff 02/07/17 18:00 70 02/07/17 17:00 70 02/07/17 16:00 73 02/07/17 16:00 97.8 80 16 138/70 (92) 98 02/07/17 14:00 71 I/O 02/07/17 02/07/17 02/07/17 02/08/17 02/08/17 02/08/17 07:00 15:00 23:00 07:00 15:00 23:00 Intake Total 750 ml 100 ml 640 ml 270 ml Balance 750 ml 100 ml 640 ml 270 ml Intake Oral 750 ml 420 ml 270 ml IV Total 100 ml 220 ml # Voids 3 2 1 # Bowel Movements 0 0 Result Diagram: 02/07/17 0538 02/06/17 1324 Objective Remarks GENERAL: This is a well-nourished, well-developed patient, in no apparent distress. SKIN: No rashes, warm and dry HEAD: Atraumatic. Normocephalic. EYES: Pupils equal round and reactive. Extraocular motions intact. No scleral icterus. ENT: Nose without bleeding, or drainage, Airway patent. NECK: Trachea midline. Supple CARDIOVASCULAR: Regular rate and rhythm 2/6 systolic murmur RESPIRATORY: Fair air entry bilaterally. No wheezes, rales, or rhonchi. GASTROINTESTINAL: Abdomen soft, non-tender, nondistended. Positive bowel sounds MUSCULOSKELETAL: Extremities without clubbing, cyanosis, or edema. Pedal pulses appreciated NEUROLOGICAL: Awake and alert. Moves all extremity. Normal speech.no focal neurological deficit A/P Assessment and Plan 02/08: Patient stable, plan for EP study , evening at 6 PM, TSH 13.6 - 6.2 Transient symptomatic severe bradycardia -withholding beta blockers, EP stud this evening at 6 PM TSH is significantly elevated free T4 is low normal while on low-dose Synthroid ? transient illness -Synthroid dose changed to 75 g (home dose is 25 g) due to jitteriness ESBL positive bacteria -Invanz per ID, anticipate transition to Bactrim hyponatremia -stable, follow BMP PO diet as tolerated. lovenox for dvt prophylaxis Tania Murray MD Feb 08, 2017 12:32
--- NOTE | 2017-02-08 15:03 | PD.CARD.PN ---
Subjective Subjective Remarks No events overnight Feels well, waiting for EP study Objective Medications Current Medications Medications (Trade) Dose Ordered Sig/Olivia Route Start Time Stop Time Status Last Admin (Norvasc) 5 mg BID PO 02/03/17 15:00 02/08/17 08:58 (Lipitor) 20 mg HS PO 02/03/17 21:00 02/07/17 21:01 (KCl) 20 meq DAILY PO 02/04/17 09:00 02/08/17 08:58 (NS Flush) 2 ml UNSCH PRN IV FLUSH 02/03/17 13:45 (NS Flush) 2 ml BID IV FLUSH 02/03/17 21:00 02/08/17 08:59 (Tylenol) 650 mg Q4H PRN PO 02/03/17 13:45 (Zofran Inj) 4 mg Q6H PRN IVP 02/03/17 13:45 (Narcan Inj) 0.4 mg UNSCH PRN IV PUSH 02/03/17 13:45 (Milk Of Magnesia Liq) 30 ml Q12H PRN PO 02/03/17 13:45 (Senokot) 17.2 mg Q12H PRN PO 02/03/17 13:45 (Dulcolax Supp) 10 mg DAILY PRN RECTAL 02/03/17 13:45 (Lactulose Liq) 30 ml DAILY PRN PO 02/03/17 13:45 (Restoril) 15 mg HS PRN PO 02/04/17 20:00 02/04/17 21:02 Ertapenem 1000 mg/ Sodium Chloride 100 ml @ 200 mls/hr Q24H IV 02/06/17 16:00 02/07/17 15:32 (Lovenox Inj) 30 mg Q24H SQ 02/06/17 18:00 (Synthroid) 75 mcg DAILY@0600 PO 02/08/17 06:00 02/08/17 06:00 Vital Signs / I&O Vital Signs Date Time Temp Pulse Resp B/P (MAP) Pulse Ox O2 Delivery O2 Flow Rate FiO2 02/08/17 14:00 76 02/08/17 13:00 73 02/08/17 12:00 76 02/08/17 11:00 98.5 77 20 144/72 (96) 97 02/08/17 11:00 77 02/08/17 10:00 63 02/08/17 09:00 80 02/08/17 08:00 76 02/08/17 07:00 72 02/08/17 07:00 98.0 84 20 168/74 (105) 98 02/08/17 06:00 58 02/08/17 05:15 76 18 132/74 (93) 98 02/08/17 05:00 62 02/08/17 04:00 76 02/08/17 03:00 78 02/08/17 02:00 70 02/08/17 01:00 56 02/08/17 00:00 58 02/07/17 23:51 99.1 66 16 124/62 (82) 97 02/07/17 23:00 59 02/07/17 22:00 60 02/07/17 21:00 64 02/07/17 20:00 70 02/07/17 19:00 61 02/07/17 19:00 98.3 80 16 136/74 (94) 97 Automatic Cuff 02/07/17 18:00 70 02/07/17 17:00 70 02/07/17 16:00 73 02/07/17 16:00 97.8 80 16 138/70 (92) 98 I/O 02/07/17 02/07/17 02/07/17 02/08/17 02/08/17 02/08/17 07:00 15:00 23:00 07:00 15:00 23:00 Intake Total 750 ml 100 ml 640 ml 270 ml Balance 750 ml 100 ml 640 ml 270 ml Intake Oral 750 ml 420 ml 270 ml IV Total 100 ml 220 ml # Voids 3 2 1 # Bowel Movements 0 0 Physical Exam GENERAL: NAD, AAOx3 SKIN: Warm and dry. HEAD: Atraumatic. Normocephalic. EYES: Pupils equal and round. No scleral icterus. No injection or drainage. ENT: No nasal bleeding or discharge. Mucous membranes pink and moist. NECK: Trachea midline. No JVD. CARDIOVASCULAR: Regular rate and rhythm. RESPIRATORY: No accessory muscle use. Clear to auscultation. Breath sounds equal bilaterally. GASTROINTESTINAL: Abdomen soft, non-tender, nondistended. Hepatic and splenic margins not palpable. MUSCULOSKELETAL: Extremities without clubbing, cyanosis, or edema. No obvious deformities. NEUROLOGICAL: Awake and alert. No obvious cranial nerve deficits. Motor grossly within normal limits. Five out of 5 muscle strength in the arms and legs. Normal speech. PSYCHIATRIC: Appropriate mood and affect; insight and judgment normal. Laboratory Laboratory Tests Test 02/06/17 13:24 02/07/17 05:38 Blood Urea Nitrogen 8 MG/DL (7-18) Creatinine 0.59 MG/DL (0.50-1.00) Random Glucose 133 MG/DL (74-106) Total Protein 6.4 GM/DL (6.4-8.2) Albumin 3.4 GM/DL (3.4-5.0) Calcium Level 7.9 MG/DL (8.5-10.1) Alkaline Phosphatase 88 U/L (45-117) Aspartate Amino Transf (AST/SGOT) 25 U/L (15-37) Alanine Aminotransferase (ALT/SGPT) 33 U/L (10-53) Total Bilirubin 0.5 MG/DL (0.2-1.0) Sodium Level 134 MEQ/L (136-145) Potassium Level 3.8 MEQ/L (3.5-5.1) Chloride Level 98 MEQ/L (98-107) Carbon Dioxide Level 27.1 MEQ/L (21.0-32.0) Anion Gap 9 MEQ/L (5-15) Estimat Glomerular Filtration Rate 99 ML/MIN (>89) Free Thyroxine 1.10 NG/DL (0.76-1.46) White Blood Count 9.0 TH/MM3 (4.0-11.0) Red Blood Count 4.94 MIL/MM3 (4.00-5.30) Hemoglobin 14.3 GM/DL (11.6-15.3) Hematocrit 42.0 % (35.0-46.0) Mean Corpuscular Volume 85.0 FL (80.0-100.0) Mean Corpuscular Hemoglobin 29.0 PG (27.0-34.0) Mean Corpuscular Hemoglobin Concent 34.2 % (32.0-36.0) Red Cell Distribution Width 15.0 % (11.6-17.2) Platelet Count 221 TH/MM3 (150-450) Mean Platelet Volume 7.6 FL (7.0-11.0) Neutrophils (%) (Auto) 68.8 % (16.0-70.0) Lymphocytes (%) (Auto) 19.8 % (9.0-44.0) Monocytes (%) (Auto) 7.3 % (0.0-8.0) Eosinophils (%) (Auto) 3.3 % (0.0-4.0) Basophils (%) (Auto) 0.8 % (0.0-2.0) Neutrophils # (Auto) 6.2 TH/MM3 (1.8-7.7) Lymphocytes # (Auto) 1.8 TH/MM3 (1.0-4.8) Monocytes # (Auto) 0.7 TH/MM3 (0-0.9) Eosinophils # (Auto) 0.3 TH/MM3 (0-0.4) Basophils # (Auto) 0.1 TH/MM3 (0-0.2) CBC Comment DIFF FINAL Differential Comment Thyroid Stimulating Hormone 3rd Gen 6.380 uIU/ML (0.358-3.740) Assessment and Plan Problem List: (1) Hypothyroidism ICD Codes: E03.9 - Hypothyroidism, unspecified (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 Higgins, will plan on Wednesday possibly Discussed with Dr. Kemp from ID about UTI, she is ok with EP study and possible PPM placement if needed 4) HTN Controlled on Norvasc 5) Hyponatremia/hypokalemia Stable/resolved Most likely due to HCTZ 6) UTI 7) Will defer management to Dr. Higgins Will see PRN, call with questions Problem Qualifiers (1) Urinary tract infection: Qualified Codes: N30.00 - Acute cystitis without hematuria Sammy Montoya DO Feb 08, 2017 15:03
[2017-02-08] MEDS: ERTAPENEM INJ 1,000 MG in SODIUM CHLORIDE 0.9% INJ 100 ML IV SCH (16:38)
[2017-02-08] MEDS: ENOXAPARIN SODIUM 30 MG/0.3 ML SYRINGE SQ SCH (18:00)
[2017-02-08] MEDS ORDERED: MIDAZOLAM HCL 2 MG/2 ML VIAL ONE (18:31)
[2017-02-08] MEDS ORDERED: HEPARIN-NS/PF INJ 1,000 ML ONE (18:35)
[2017-02-08] MEDS ORDERED: ISOPROTERENOL HCL 1 MG/5 ML AMP ONE (18:38)
--- NOTE | 2017-02-08 19:27 | CATHPROC ---
[facility] [employer] HIS Report Study Information Study Number Admission Scheduled Start Study Start [id number] Feb 03 2017 1:05PM 02/08/2017 Feb 08 2017 9:53AM [facility] Electrophysiology Study Admit Source Facility Department Other [facility] - [facility] Exhibit Technician Physician and Clinical Staff Initial Vera Hanks Veneer Taping Machine Operator Dakotah Schuster,RT(R) Other Anesthesia, JAVA FRONT END WEB DEVELOPER Recorder Bri Ball,JEAN Scrub Sofía Alfaro RCIS Equipment Time Mercantile Reporter Description Size Mfg Part Number Used/Scraped [id number] 10:02 [employer] PACK, CCL CUSTOM * Used *[id number] 10:02 [employer] PACER JOSE, LIMB * 2530 *[id number] Used [id number] 10:02 [facility] BLANKET,WARM AIR CCL * Used *[id number] 10:03 [employer] MED[employer] CATHETER, JSN, QUAD FR 5 Used *[id number] 10:03 [employer] MEDICAL CATHETER, JSN, QUAD FR 5 Used *[id number] 293936 10:03 [employer] MEDICAL CATHETER, JSN, QUAD FR 5 Used *[id number] 10:03 [employer] MEDICAL CATHETER, JSN, QUAD FR 5 Used *[id number] 10:03 [employer] MEDICAL SHEATH, EPS, FR5 FAST CATH FR 5 Used *[id number] [id number] 10:03 [employer] MED[employer] SHEATH, EPS, FR5 FAST CATH FR 5 Used *[id number] 580238 10:03 [employer] MED[employer] SHEATH, EPS, FR5 FAST CATH FR 5 Used *[id number] [id number] 10:03 [employer] MEDICAL SHEATH, EPS, FR5 FAST CATH FR 5 Used *[id number] [id number] 10:03 [employer] MED[employer] SHEATH, EPS, FR6 FAST CATH FR 6 Used *[id number] History: Allergies Allergy Reaction penicillin G History: Risk Factors Hypertension Dyslipidemia Yes Yes Labs Hgb (g/dl) Hct (%) RBC (MIL/MM3) WBC (l/cumm) Platelets (thousands) 11.60-17.00 35.00-51.00 4.00-5.90 4.00-11.00 150.00-450.00 14.0 42 4.9 9 221 Glucose (mg/dl) BUN (mg/dl) Creatinine (mg/dl) BUN:Creatinine (1:x) 74.00-106.00 7.00-18.00 0.50-1.30 10.00-20.00 133 8 0.5 16 Na (meq/l) K (meq/l) 136.00-145.00 3.50-5.10 134 3.8 Medication Medication Total Dose (Bolus/Oral) Medication Total Dosage/Unit 1% XYLOCAINE 20 mL Medications (Bolus/Oral) Medication Time Given Dosage/Unit Administered By Reason 1% XYLOCAINE 02/08/2017 6:52:00 PM 20 mL Vera Higgins 20 mL 1% XYLOCAINE given in lab by Vera Higgins in Right Groin via Subcutaneous. Medication (Drip) Medication Time Given Dosage/Unit Concentration/Unit Diluent (ml) Solution ISUPREL 02/08/2017 7:08:57 PM 4 mcg/min 1 mg 250 NaCl .9 4 mcg/min ISUPREL given in lab by Anesthesia, JAVA FRONT END WEB DEVELOPER via Peripheral IV. Pump/Drip Flow = 60 ml/hr using NaCl .9 with a concentration of 1 mg in 250 ml. Ordered by Vera Higgins. Reason: As per physicians verbal order. Initial Case Assessment Cardiovascular HR Rhythm NIBP Chest Pain 79 sr 137/68 0 Edema Present Skin color Skin None Normal Warm Dry Circulatory - Right Pulses Dorsalis Pedis 1 Scale (0,1,2,3,4,d) Circulatory - Left Pulses Dorsalis Pedis 1 Scale (0,1,2,3,4,d) Circulatory - Lower Extremities Color Lower Right Color Lower Left Normal Normal Neurological State Oriented to time-place- Alert Moves all extremities person Respiration - General Respiration Rate SpO2 (%) (B/min) 20 96 Final Case Assessment Cardiovascular HR Rhythm NIBP Chest Pain 106 st 123/57 0 Edema Present Skin color Skin None Normal Warm Dry Circulatory - Right Pulses Dorsalis Pedis 1 Scale (0,1,2,3,4,d) Circulatory - Left Pulses Dorsalis Pedis 1 Scale (0,1,2,3,4,d) Circulatory - Lower Extremities Color Lower Right Color Lower Left Normal Normal Neurological State Lethargic Moves all extremities Respiration - General Respiration Rate SpO2 (%) O2 (lpm) (B/min) 16 99 6 Chronological Log Time Study Chronological Log 18:27:09 Patient arrived via Bed. 18:27:09 Patient Name, D.O.B, / Armband Verified By R.N. 18:27:10 Consent signed by the physician and the patient and verified by the Museum Exhibit Technician staff. 18:27:11 Verbal Stimulation=2 Physical Stimulation=2 Airway=2 Respiration=2 TOTAL=8. (0=absent, 1=li mited, 2=present) 18:27:12 Anesthesia at bedside. Assumes care of patient. Emmie Moon 18:28:00 Pre-op and post- op instructions given; patient acknowledges understanding of instructions. 18:28:14 Patient has been NPO for More than 6Hrs. 18:28:14 Skin Breakdown- generalized psoriasis, abd hernia with 1cm round dark scab 18:28:15 Patient Warmer Placed on the Table. 18:28:15 Disposable Defibrillator Pads Placed On Patient. 18:28:16 Byron Prominences Protected 18:28:18 A # 22 IV was noted in the Forearm (right). Grade = 0 0.9ns kvo 18:28:19 A # 20 IV was noted in the Antecubital (left). Grade = 0 0.9ns kvo 18:28:19 History and physical on the chart or being dictated. Assessment: Initial Case, HR=79 BPM, Rhythm=sr, AHKZ=316/68 mmhg, Chest Pain=0, Edema=None, Col or=Normal, Skin = Warm, Dry Right Pulses: Jose Luis Ped=1 Left Pulses: Jose Luis Ped=1 18:40:33 Lower Right Extremities: Color=Normal Lower Left Extremities: Color=Normal Neurological: State=Alert, Ox3, TATUM Respiration: Resp=20 B/min, SpO2=96 % 18:41:18 Table restraints applied according to hospital policy 18:41:27 Bilateral groins prepped with 2% chlorhexidine, and with a 3 min. waiting time. 18:44:37 MD paged 18:49:30 MD arrived. Time Out. Correct patient, procedure, procedure equipment, site and side verified with physicia n present. Time 18:51:06 concurred by MD, individual staff and JAVA FRONT END WEB DEVELOPER. Time Out #2 - Consents verified, patient in correct position, all results are labled and displa yed, safety precautions 18:51:23 taken, antibiotics administered. Time out concurred by MD, individual staff and JAVA FRONT END WEB DEVELOPER in procedu re 18:51:49 Case Start 18:52:00 20 mL 1% XYLOCAINE given in lab by Vera Higgins in Right Groin via Subcutaneous. 18:52:55 Reference ECG taken 18:53:39 Vascular access was obtained in the Fem Vein (right). 18:54:00 Vascular access was obtained in the Fem Vein (right). 18:54:15 Vascular access was obtained in the Fem Vein (right). 18:54:21 Vascular access was obtained in the Fem Vein (right). 18:55:00 A SHEATH, EPS, FR5 FAST CATH FR 5 was advanced into the Fem Vein (right) using the Percutan eous technique. 18:55:15 A SHEATH, EPS, FR5 FAST CATH FR 5 was advanced into the Fem Vein (right) using the Percutan eous technique. 18:55:23 A SHEATH, EPS, FR5 FAST CATH FR 5 was advanced into the Fem Vein (right) using the Percutan eous technique. 18:55:29 A SHEATH, EPS, FR6 FAST CATH FR 6 was advanced into the Fem Vein (right) using the Percutan eous technique. A CATHETER, JSN, QUAD FR 5 was advanced vis Fem Vein (right) and placed in the CS. Placement wa s visually 18:56:08 confirmed under fluoroscopy. A CATHETER, JSN, QUAD FR 5 was advanced vis Fem Vein (right) and placed in the HIS. Placement w as visually 18:56:55 confirmed under fluoroscopy. A CATHETER, JSN, QUAD FR 5 was advanced vis Fem Vein (right) and placed in the RVA. Placement w as visually 18:57:20 confirmed under fluoroscopy. A CATHETER, JSN, QUAD FR 5 was advanced vis Fem Vein (right) and placed in the HRA. Placement w as visually 18:57:38 confirmed under fluoroscopy. 18:59:00 EPS in progress. 4 mcg/min ISUPREL given in lab by Anesthesia, JAVA FRONT END WEB DEVELOPER via Peripheral IV. Pump/Drip Flow = 60 ml/hr using NaCl .9 with 19:08:57 a concentration of 1 mg in 250 ml. Ordered by Vera Higgins. Reason: As per physicians verbal o rder. 19:13:57 Isuprel off :14:21 EP Procedure was performed. 19:14:51 Catheter(s) removed without difficulty 19:15:31 Sheaths removed; pressure applied to access sites by DC. 19:20:40 Case End 19:20:58 No case complications noted. 19:20:59 Cine recording checked. 19:21:49 Defibrillator and ground pads removed. Skin intact. Assessment: Final Case, HW=596 BPM, Rhythm=st, XMFM=373/57 mmhg, Chest Pain=0, Edema=None, Col or=Normal, Skin = Warm, Dry Right Pulses: Jose Luis Ped=1 Left Pulses: Jose Luis Ped=1 19:22:06 Lower Right Extremities: Color=Normal Lower Left Extremities: Color=Normal Neurological: State=Lethargic, TATUM Respiration: Resp=16 B/min, SpO2=99 %, O2=6 lpm 19:26:07 CICU called. Spoke to Bassam. 19:26:30 Bedside Report will be given. 19:32:00 Sterile dressing applied to site 19:36:53 [facility] - Contrast Media Used In Study Contrast Total Opened (mL) Total Used (mL) Total Wasted (mL) Unspecified 0 0 0 End Study - Maximum Contrast Load Max Contrast Load (mL) 780.0 End Study - Radiation Exposure Fluoro Time (minutes) 1.3 End Study - Patient Disposition Complications Transferred To Interventional Outcome No Telemetry Bed successful
[2017-02-08] MEDS ORDERED: LIDOCAINE HCL 1% 50 ML VIAL INFIL PRN (19:30)
[2017-02-08] MEDS ORDERED: METOCLOPRAMIDE HCL 10 MG/2 ML VIAL IV PUSH PRN (19:30)
[2017-02-08] MEDS ORDERED: oxyCODONE/ACETAMINOPHEN 5 MG/325 MG TAB PO PRN ×2 (19:30)
[2017-02-08] MEDS ORDERED: SODIUM CHLOR 0.9% 250 ML INJ 250 ML IV PRN (19:30)
[2017-02-08] MEDS ORDERED: LORazepam 2 MG/ML VIAL IV PUSH PRN (19:30)
[2017-02-08] MEDS ORDERED: ONDANSETRON HCL 4 MG/2 ML VIAL IV PUSH PRN (19:30)
[2017-02-08] MEDS ORDERED: ATROPINE SULFATE 1 MG/ML VIAL IV PUSH PRN (19:30)
[2017-02-08] MEDS ORDERED: BACITRACIN OINT 0.9 GM PKT TOP ONE (20:00)
[2017-02-08] MEDS: ATORVASTATIN 20 MG TAB PO SCH (20:58)
[2017-02-09] VITALS (16 sets, daily range): BP systolic 118–159; BP diastolic 62–86; PULSE 60–90; RESP 16–20; TEMP 97.6–98.3; O2SAT 96–97
[2017-02-09] MEDS: LEVOTHYROXINE SODIUM 75 MCG TAB PO SCH (06:20)
--- NOTE | 2017-02-09 06:44 | MB ---
cc: CHUN HERNANDEZ M.D. DATE OF CONSULTATION 02/08/2017 REASON FOR CONSULTATION Bradycardia and possible conduction disease. Mrs. Lizarraga is a 76-year-old female with a history of high blood pressure and hyperlipidemia admitted on February 05 due to bradycardia and shortness of breath. Left heart catheterization was negative for ischemia. Infra-His disease is suspected. The patient with fast fascicular block. I was consulted for evaluation, possible pacing support and possible electrophysiology study. The chart was reviewed. The patient was evaluated. ALLERGIES PENICILLIN SOCIAL HISTORY Negative for smoking and drinking. FAMILY HISTORY Noncontributory to her current medical condition. MEDICATIONS 1. Synthroid 2. Dulcolax 3. Potassium 4. Norvasc 5. Lipitor REVIEW OF SYSTEMS Currently she refers no chest pain or chest discomfort. No shortness of breath. No vomiting. No fever. PHYSICAL EXAM Alert, fully oriented. VITAL SIGNS: Blood pressure 112/72, pulse 72, respiratory 18 LUNGS: Ventilated. CARDIOVASCULAR: S1 and S2. No gallop or murmur. ABDOMEN: Soft. No mass. No bruit. EXTREMITIES: No edema. Electrocardiogram indicates sinus rhythm, right bundle-branch block, left anterior fascicular block, first-degree AV block. LABORATORY DATA Hemoglobin is 14.2, white blood cell 9.0. Potassium 3.8, creatinine is 0.59. TSH 6.38. 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 Electrophysiology study and possible pacemaker insertion discussed. The risks, the nature and the benefit of the procedure are clearly stated to her. The risks include pneumothorax, cardiac perforation, stroke and even . She understood and agreed to proceed. Procedure will be performed during hospitalization. MD HARLEEN Medina/LUIS ALBERTO /7:10 PM /6:28 AM
--- NOTE | 2017-02-09 06:52 | MA ---
cc: CHUN HERNANDEZ M.D. DIET TOLERATED 02/08/2017 PROCEDURE PERFORMED Electrophysiology study, CS cannulation, repeat electrophysiology study on Isuprel infusion. INDICATIONS Mrs. Lizarraga is a 76-year-old female with a history of trifascicular ventricular block who was admitted due to dizziness and bradycardia. Left heart catheterization was negative for ischemia. Possible pacing support discussed. Decision for electrophysiology study was taken. The risks, the nature and the benefit of the procedure are clearly stated to her. The risks include pneumothorax, cardiac perforation, stroke and even . She understood and agreed to proceed. PROCEDURE After written informed consent was obtained, the patient was brought to the EP lab where she was prepped and draped in the usual sterile fashion. Conscious sedation was initiated and maintained throughout the procedure by anesthesiologist. Once sedation verified, the right inguinal area was anesthetized with 2% Xylocaine. Using modified Seldinger technique, the right femoral vein was cannulated on four occasions and four guide wires were advanced over the wire. Three 5 and a 6-Tajik Hemaquet were advanced. Then under fluoroscopic guidance through the 5 and 6-Tajik Hemaquet, four 5-Tajik Emilee curved quadripolar electrophysiology catheters were advanced and positioned on the His, upper right atrium, coronary sinus and right ventricular apex. Basic interval was measured and were within normal limits. HV was around 56 milliseconds. Then sinus node recovery time was performed. It was within normal limits. Atrial pacing protocol consisted of incremental atrial pacing as well as program stimulation with one drive train cycle length and up to one excess stimuli delivered. No tachyarrhythmia was induced. Then ventricular pacing protocol was performed. There was no VA conduction. Ventricular pacing protocol consisted of incremental ventricular pacing as well as program stimulation with one drive train cycle length and up to two extra stimuli delivered. Then Isuprel infusion was initiated. There was good conduction. No tachyarrhythmia was induced during atrial pacing protocol. Ventricular pacing protocol was performed. There was no VA conduction. At that point, the procedure was complete. All catheters were removed. The patient is going to be transferred to the recovery room. No need for pacing support. No incident report. The patient tolerated procedure. Blood loss minimal. 1. Electrocardiogram. At baseline, the patient was in sinus. Postprocedure, electrocardiogram was unchanged. 2. Basic interval. Base cycle length was 120 milliseconds, AH at 126 and HV at 56 milliseconds. 3. Atrial pacing protocol. Wenckebach of the node was around 550 milliseconds at baseline. On Isuprel, it was 370 milliseconds. No tachyarrhythmia was induced. 4. Ventricular pacing protocol. There was no VA conduction at baseline on Isuprel. No tachyarrhythmia was induced. CONCLUSION Negative electrophysiology study for supraventricular tachyarrhythmia. No conduction disease, COMMENT AND RECOMMENDATIONS My recommendation at this point, continue with current management. No need for pacing support. If there is any syncopal episode, then loop recorder recommended. MD HARLEEN Medina/LUIS ALBERTO /7:16 PM /6:42 AM
[2017-02-09] MEDS: amLODIPine BESYLATE 5 MG TAB PO SCH (09:12)
[2017-02-09] MEDS: SODIUM CHLORIDE 0.9% FLUSH 10 ML FLUSH IV FLUSH SCH (09:13)
[2017-02-09] MEDS: POTASSIUM CHLORIDE 20 MEQ CONTROLLED RELEASE TAB PO SCH (09:13)
[2017-02-09 14:02] LABS: POTASSIUM 3.8 MEQ/L (3.5-5.1)
--- NOTE | 2017-02-09 15:39 | HHI.IDPN ---
Subjective Subjective Remarks pt is doing OK She is feeling fine no fever she toletrated Bactrim in the past Antibiotics Ertapenem Allergies: Coded Allergies: penicillin G (Unverified Allergy, Mild, 02/03/17) Objective . Vital Signs Date Time Temp Pulse Resp B/P (MAP) Pulse Ox O2 Delivery O2 Flow Rate FiO2 02/09/17 15:00 76 02/09/17 15:00 98.3 79 20 144/73 (96) 97 02/09/17 14:00 81 02/09/17 13:00 76 02/09/17 12:00 79 02/09/17 11:00 81 02/09/17 11:00 98.0 83 20 159/75 (103) 96 02/09/17 10:00 78 02/09/17 09:00 82 02/09/17 08:00 90 02/09/17 07:00 77 02/09/17 07:00 97.6 84 20 122/86 (98) 97 02/09/17 06:00 60 02/09/17 05:00 64 02/09/17 04:00 65 02/09/17 03:00 98.1 65 16 118/62 (80) 96 02/09/17 03:00 87 02/09/17 02:00 68 02/09/17 01:00 66 02/09/17 00:00 71 02/08/17 23:00 66 02/08/17 23:00 98.6 74 16 136/70 (92) 96 02/08/17 22:00 76 02/08/17 21:00 72 02/08/17 20:00 76 02/08/17 19:00 98.2 74 18 145/77 (99) 96 02/08/17 19:00 87 02/08/17 17:00 68 02/08/17 16:00 72 . Laboratory Tests Test 02/09/17 13:16 Blood Urea Nitrogen 9 MG/DL Creatinine 0.64 MG/DL Random Glucose 122 MG/DL Calcium Level 8.7 MG/DL Sodium Level 136 MEQ/L Potassium Level 3.8 MEQ/L Chloride Level 103 MEQ/L Carbon Dioxide Level 27.0 MEQ/L Anion Gap 6 MEQ/L Estimat Glomerular Filtration Rate 90 ML/MIN Physical Exam CONSTITUTIONAL/GENERAL: This is an adequately nourished patient, in no apparent distress. TUBES/LINES/DRAINS: SKIN: No jaundice, rashes, or lesions. CARDIOVASCULAR: Regular rate and rhythm without murmurs, gallops, or rubs. RESPIRATORY/CHEST: Symmetric, unlabored respirations. Clear to auscultation. Breath sounds equal bilaterally. No wheezes, rales, or rhonchi. GASTROINTESTINAL: Abdomen soft, non-tender, nondistended. Very large soft not tender mass in RLQ cw large hernia Bowel sounds present. GENITOURINARY: Without palpable bladder distension. MUSCULOSKELETAL: Extremities without clubbing, cyanosis, or edema NEUROLOGICAL: Awake and alert.Non focal Assessment & Plan Remarks ESBL + E.coli UTI reciurrent UTIs failed cipro (resistance) S TO BACTRIM Large abd wall hernia Bradycardia Leukocytosis - resolved dc Ertapenem switch to Bactrim to complete 14 days course OK to dc pt home Sharon Kemp MD Feb 09, 2017 15:39
[2017-02-09] MEDS ORDERED: BACT800T5 PO (15:40)
[2017-02-09] MEDS ORDERED: LEVO.075 PO (16:16)
--- NOTE | 2017-02-09 19:57 | HHI.DS ---
Discharge Summary Admission Date Feb 03, 2017 at 13:05 Discharge Date: Feb 09, 2017 Admitting Diagnosis hyponatremia (1) Severe sinus bradycardia ICD Code: R00.1 - Bradycardia, unspecified (2) Hypothyroidism ICD Code: E03.9 - Hypothyroidism, unspecified (3) Trifascicular block ICD Code: I45.3 - Trifascicular block (4) Sinus pause ICD Code: I45.5 - Other specified heart block Procedures EP study Brief History - From Admission hx from patient, ER physician communication, and review of medical records. Patient reported that she came to the hospital because she has been extremely weak. She reports she was very nauseous but did not vomit. She has had diarrhea off and on, maybe once a week for about 2 months. Denies any blood in her stool or in her urine. She reports she was also having UTIs for a while on antibiotics. On , she was at her doctor's office and was prescribed Cipro. She's been on it since Wednesday. Her diarrhea is more foul-smelling than her normal stool. No fever. But felt cold all the time. No cough. She is on hydrochlorothiazide at home. Denies any chest pain/dizziness/syncopal episodes. Patient reports similar episodes with severe weakness,. She was rushed to potential blood clots overnight CBC/BMP: 02/07/17 0538 02/09/17 1316 Significant Findings Laboratory Tests Test 02/07/17 05:38 02/09/17 13:16 Thyroid Stimulating Hormone 3rd Gen 6.380 uIU/ML (0.358-3.740) Random Glucose 122 MG/DL (74-106) PE at Discharge GENERAL: This is a well-nourished, well-developed patient, in no apparent distress. SKIN: No rashes, warm and dry HEAD: Atraumatic. Normocephalic. EYES: Pupils equal round and reactive. Extraocular motions intact. No scleral icterus. ENT: Nose without bleeding, or drainage, Airway patent. NECK: Trachea midline. Supple CARDIOVASCULAR: Regular rate and rhythm 2/6 systolic murmur RESPIRATORY: Fair air entry bilaterally. No wheezes, rales, or rhonchi. GASTROINTESTINAL: Abdomen soft, non-tender, nondistended. Positive bowel sounds MUSCULOSKELETAL: Extremities without clubbing, cyanosis, or edema. Pedal pulses appreciated NEUROLOGICAL: Awake and alert. Moves all extremity. Normal speech.no focal neurological deficit Hospital Course 76 years old female admitted for syncope, cardiology consulted, found to have symptomatic severe bradycardia, beta penelope stopped, EP cardiology etiology has been consulted, EP study has been done which was negative, recommended monitoring outpatient if syncope recurrent, patient will need loop record. Also patient was found to have UTI with Klebsiella ESBL, ID consulted patient started started on Invanz, switched to Bactrim at discharge Pt Condition on Discharge: Fair Discharge Disposition: Discharge Home Discharge Time: <= 30 minutes Discharge Instructions DIET: Follow Instructions for: Heart Healthy Diet Activities you can perform: Weight Bearing as Luisa Other Activity Instructions: fall precaution Follow up Referrals: Cardiology - 1 Week with Vera Higgins MD New Medications: Sulfamethoxazole-Trimethoprim (Bactrim DS) 800-160 Mg Tab 1 TAB PO BID for Infection, #20 TAB 0 Refills Levothyroxine (Synthroid) 75 Mcg Tab 75 MCG PO DAILY@0600 for hypothyroid, #30 TAB Continued Medications: Amlodipine (Amlodipine) 5 Mg Tab 5 MG PO BID for Blood Pressure Management, #30 TAB 0 Refills Atorvastatin (Atorvastatin) 20 Mg Tab 20 MG PO HS for Cholesterol Management, #30 TAB 0 Refills Levothyroxine (Levothyroxine) 137 Mcg Tab 137 MCG PO DAILY for Thyroid, #30 TAB 0 Refills Potassium Chloride ER (Potassium Chloride ER) 20 Meq Tab 20 MEQ PO DAILY for Electrolyte Replacement, #30 TAB 0 Refills Discontinued Medications: Metoprolol Tartrate (Metoprolol Tartrate) 100 Mg Tab 200 MG PO DAILY, #30 TAB 0 Refills Tania Murray MD Feb 09, 2017 19:57
--- NOTE | 2017-02-09 21:33 | EKG ---
Date Performed: 02/08/2017 Time Performed: 20:19:26 PTAGE: 76 years EKG: NORMAL Sinus rhythm FIRST DEGREE AV BLOCK RBBB LEFT ANTERIOR FASCICULAR BLOCK NONSPECIFIC ST-T WAVE CHANGES PREVIOUS TRACING : 02/05/2017 09.07 DOCTOR: Jose Kemp Interpretating Date/Time 02/09/2017 21:32:41
--- NOTE | 2017-02-21 09:33 | PQ ---
Physician Query Response Document PATIENT: BRANDON CORDOBA : 1940 ADMIT DATE: 02/03/2017 1:05 PM DISCH DATE: 02/09/2017 4:20 PM RESPONDING PROVIDER #: [email or web address] QUERY TEXT: Clinical Validity Additional clinical indicators are required to support your documented diagnosis of : SEPSIS Please respond and also state in your next progress note whether: -- Condition exists and also please provide clinical indicators to support the diagnosis -- Condition does not exist and also please provide amended documentation in the medical record to segundo spencer -- Unable to provide additional clarity regarding the diagnosis -- Other, please specify The patient's Clinical Indicators include: 02/03/17 Admission Diagnosis hyponatremia PER H hyponatremia hyokalemia sepsis by criteria diarhrea- r/o cdiff PER 02/04/17 PROGRESS NOTE ASSESSMENT AND PLAN: sepsis - Resolved, despite ? source, possibly uti. Di arrhea unlikely since this is very scant now CLINICAL INDICATORS: 02/03/17 WBC - 14.8 H LACTIC ACID - 2.4 H URINE CULTURE - POSITIVE FOR GNR -- NO FEVER, TACHYCARDIA OR TACHYPNEA NOTED -- NO ADDITIONAL LACTIC ACID ELEVATION Query created by: Sweta Hatfield on 02/05/2017 9:54 AM RESPONSE TEXT: Patient was suspected to be septic due to her clinical presentation with worsening weakness and a whi te count elevation with lactic acidosis. Her tachycardia response (which is an additional indicating criteria) was not evident likely because of her hypothyroid state which was contributing to her aman cardia instead. Otherwise the patient would have tachycardia, leukocytosis, and a suspected UTI (whic h did end up growing ESBL +). Electronically signed by: Arnulfo Cavanaugh 02/21/2017 9:29 AM
== END 2017-02-09 16:20 | disposition home or self-care (01) | DRG 872 ==
LOC: NEPD 09:49 → NEDA 13:05 → HOCA 14:35 → HIME 02-05 10:20 → HCIS 02-07 15:08
PROVIDERS: ADMIT Hospitalist; ATTEND Hospitalist
PROC: 4A0234Z Measurement of Cardiac Electrical Activity, Percutaneous Approach (ICD-10-PCS; 2017-02-08)
PROC: 4A023FZ Measurement of Cardiac Rhythm, Percutaneous Approach (ICD-10-PCS; principal; 2017-02-08 11:00)
DX: A41.9 Sepsis, unspecified organism (principal); N17.9 Acute kidney failure, unspecified; I45.3 Trifascicular block; E87.1 Hypo-osmolality and hyponatremia; R00.1 Bradycardia, unspecified; N39.0 Urinary tract infection, site not specified; I10 Essential (primary) hypertension; E87.6 Hypokalemia; K21.9 Gastro-esophageal reflux disease without esophagitis; E03.9 Hypothyroidism, unspecified; E78.5 Hyperlipidemia, unspecified; I44.0 Atrioventricular block, first degree; B96.20 Unspecified Escherichia coli [E. coli] as the cause of diseases classified elsewhere
CPT/HCPCS: 80048; 80053; 81001; 82948; 83605; 83735; 84439; 84443; 84484; 85025; 87077; 87086; 87186; 87641; 93005; 93306; 93620; 93623; 96361; 96365; 96374; C1730; J0696; J1335; J1644; J1650; J2250; J3010; J3480; J7030; J7040